=== PATIENT | female | born 1980 | race Caucasian/White ===

== ENCOUNTER 2022-08-09 22:58 | Inpatient (IN) | payer OTHER, SELFPAY ==
[2022-08-09 23:25] VITALS: BP 112/55; PULSE 54; RESP 18; TEMP 36.4; O2SAT 96
--- NOTE | 2022-08-10 02:46 | PC.ADMIT ---
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 PT WAS BROUGHT IN DUE TO INCREASED DEPRESSION AND SUICIDAL IDEATIONS. PT REPORTED A PLAN TO JUMP OFF A BRIDGE AND WORSENING PANIC ATTACKS. PT REPORTS POOR SLEEP AND APPETITE. SHE HAS HAD 3 PAST HOSPITALIZATIONS. PT HAS A HX OF SELF HARM, WITH SCARRING ON BILATERAL UPPER EXTREMITIES. PT HAS ONE PAST SUICIDE ATTEMPT. PT HAS A HISTORY OF SUBSTANCE USE DISORDER WITH ONE MONTH OF SOBRIETY FROM ALCOHOL AND OPIOIDS. PT ON SUBOXONE CURRENTLY. PTS VITAL SIGNS STABLE. COVID NEGATIVE. PT RENTS AN APARTMENT AND CAN RETURN AFTER DISCHARGE. PT NEEDS OUTPATIENT PROVIDERS. LABS UNREMARKABLE. PSYCH/DUAL GROUP. 15 MINUTE SAFETY CHECKS. ALERT AND ORIENTED X4. NO KNOWN ALLERGIES. INDEPENDENT AMBULATION. ONE PRIOR PSYCH ADMISSION OF 1 MONTH DURATION IN [place]. UTOX NEGATIVE. UNEMPLOYED. NEVER BEEN , NO CHILDREN. NO LEGAL INVOLVEMENT. PT FEELS HOPELESS. PT DENIES THOUGHTS OF HARMING OTHERS. NO AH OR VH AT THIS TIME. SAFE ON UNIT AND CAN SEEK STAFF. PT DID NOT SIGN LEGAL RELEASES AT THIS TIME. SAFETY TOOL NEEDS TO BE COMPLETED.
[2022-08-10] MEDS: Gabapentin 300 MG CAPSULE PO ×3 (09:31→19:53)
[2022-08-10] MEDS: PARoxetine HCL 30 MG TABLET 60 MG PO (09:31)
[2022-08-10] MEDS: Buprenorphine/Naloxone 8/2 mg FILM 2 FILM SUBLINGUAL (09:31)
[2022-08-10] MEDS: LORazepam 1 MG TABLET PO ×2 (10:47→18:14)
[2022-08-10 10:57] VITALS: BP 110/70; PULSE 70; RESP 16; TEMP 36.5; O2SAT 97
--- NOTE | 2022-08-10 13:29 | HO.PM.IMCN ---
History of Present Illness Data of Consult Service Date: 08/10/22 Primary Care Provider: Unknown Physician HPI Reason for consult: Routine medical H&P This is a 42 yo F who denies any chronic medical problems and is admitted to the inpatient psychiatric unit. Medical consult requested for routine medical H&P. Pt seen and examined. She reports some urinary urgency and frequency. Reports that she was treated with antibiotics for a UTI in the last 1-2 weeks. She reports recent menses. She denies abdominal pain. Denies any fevers or chills. Reports sexual activity with barrier contraception. However, concerned over STI and would like to be tested. PMH/PSH Denies Review of Systems Review of Systems: negative except HPI PMFSH Social History Household Members: Unknown / Unable to assess Housing: Apartment Do you presently have visiting nurse or other home services: No Unable to assess alcohol history related to: Unknown Patient Tobacco Use Status: Never used Tobacco Smoked in Last 30 Days: No Patient Interested in Nicotine Replacement: No Patient Given Instructions on How to Stop Smoking: No Second Hand Smoke Exposure: No Use of substances other than those prescribed or required for medical reasons: Yes Substance Use Type: Former Substance User Last Used Substance: Unknown Currently Displaying Signs/Symptoms of Drug Intoxication Withdrawal: No Any prior treatment program specific to substance use: Yes Spiritual Healthcare Practices: unknown Baptism Healthcare Practices: unknown Cultural Healthcare Practices: unknown Advance Directives: No Advance Directives Information Provided: No Do you have thoughts of harming others: None Do you have a plan to hurt others: No Plan Recently lost weight without trying: Unsure How much weight loss: Unsure Eating poorly because of decreased appetite: No Nutrition screen score: 4 Nutrition Risks: No Nutritional Risk Patient : No : No Poor oral hygiene: No Meds Allergies Allergy/AdvReac Type Severity Reaction Status Date / Time No Known Allergies Allergy Verified 08/10/22 03:42 Active Medications: Current Medications Acetaminophen (Acetaminophen 325 Mg Tablet) 650 mg PO Q6H PRN PRN Reason: Headache/Pain Mild Scale (1-3) Al Hydroxide/Mg Hydroxide (Magnesium Hydrox/Alum Hydrox 30 Ml Oral.Susp) 30 ml PO Q6H PRN PRN Reason: Heartburn/Nausea Buprenorphine/Naloxone (Buprenorphine/Naloxone 8/2 Mg Film) 1 film SUBLINGUAL 0900,1700 JOANNE Gabapentin (Gabapentin 300 Mg Capsule) 300 mg PO TID [facility] Last Admin: 08/10/22 09:31 Dose: 300 mg Hydroxyzine HCl (Hydroxyzine Hcl 25 Mg Tablet) 25 mg PO Q6H PRN PRN Reason: Anxiety Lorazepam (Lorazepam 1 Mg Tablet) 1 mg PO BID PRN PRN Reason: anxiety Last Admin: 08/10/22 10:47 Dose: 1 mg Magnesium Hydroxide (Milk Of Magnesia 30 Ml Oral.Susp) 30 ml PO DAILY PRN PRN Reason: Constipation Mirtazapine (Mirtazapine 15 Mg Tablet) 15 mg PO BEDTIME JOANNE Paroxetine HCl (Paroxetine Hcl 30 Mg Tablet) 60 mg PO DAILY JOANNE Last Admin: 08/10/22 09:31 Dose: 60 mg Trazodone HCl (Trazodone Hcl 50 Mg Tablet) 50 mg PO BEDTIME MRX1 PRN PRN Reason: Insomnia Home Medications Medication Instructions Recorded Confirmed Last Taken Type buprenorphine 8 mg-naloxone 2 mg 2 film buccal DAILY 08/10/22 08/10/22 Unknown History sublingual film (Suboxone) gabapentin 300 mg capsule 300 mg PO TID 08/10/22 08/10/22 Unknown History lorazepam 1 mg tablet 1 mg PO BID PRN anxiety 08/10/22 08/10/22 Unknown History mirtazapine 15 mg tablet 15 mg PO BEDTIME 08/10/22 08/10/22 Unknown History paroxetine HCl 30 mg tablet (Paxil) 60 mg PO DAILY 08/10/22 08/10/22 Unknown History Physical Exam Vital Signs and Narrative: Vital Signs: Last Vital Signs Temp 97.7 F 08/10/22 10:57 Pulse 70 08/10/22 10:57 Resp 16 08/10/22 10:57 BP 110/70 08/10/22 10:57 Pulse Ox 97 08/10/22 10:57 O2 Del Method Room Air 08/10/22 10:57 Const: Other: General - no acute distress, appears comfortable Cardiovascular - regular rate and rhythm, S1-S2 Lungs - normal respiratory effort, clear to auscultation bilaterally, no wheezing Abdomen - soft, nontender, no rebound or guarding Extremities - no edema bilaterally Neuro - awake and alert, no focal deficits; cn 2-12 intact bilaterally - patient defers Assessment and Plan (1) Urinary frequency: Status: Acute Plan 42 yo F admitted to . Medical consult requested for routine medical H&P. Pt denies any chornic medical issues. Endorses urinary symptoms of dysuria / urgency / frequency. Recently completed treatment for UTI. Also reports sexual activity with barrier protection, but requested STI screen. Denies symptoms of PID. Denies any rashes / ulcerations. Plan: Check UA check urine for G/C; pt deferred exam, if symptoms persist, may need further eval Will treat if any of the above positive Will sign off at this time, please reconsult PRN. Time Spent With Patient Time: Total time managing care of this patient today ____ minutes.
[2022-08-10 14:39] LABS: Appearance Urine Clear; Color Urine Yellow; Glucose Urine UA Negative (Negative); Leukocyte Esterase Urine Moderate (2+) (Negative); Nitrite Urine Negative (Negative); Specific Gravity - Urine <= 1.005 (1.005-1.025); UMIC TRIGGER UACC YES; Urine Blood Large (3+) (Negative); Urine Ketones Negative (Negative); Urine Protein Negative (Neg-Trace)
[2022-08-10 14:53] LABS: Bacteria Urine None Seen (None Seen); Hyaline Casts Urine 0-2 /LPF (0-2); Squamous Epithelial Cell Urine 0-2 /HPF (0-2); WBC Urine 0-5 /HPF (0-5)
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
[2022-08-10 17:42] LABS: CT PCR NOT DETECTED (Not Detect.); NG PCR NOT DETECTED (Not Detect.)
[2022-08-10 18:00] VITALS: BP 122/75; PULSE 68; TEMP 36.5; O2SAT 96
[2022-08-10] MEDS: Buprenorphine/Naloxone 8/2 mg FILM 1 FILM SUBLINGUAL (18:14)
[2022-08-10] MEDS: Mirtazapine 15 MG TABLET PO (19:53)
[2022-08-11] MEDS: Buprenorphine/Naloxone 8/2 mg FILM 1 FILM SUBLINGUAL (09:01)
[2022-08-11] MEDS: Gabapentin 300 MG CAPSULE PO ×3 (09:01→19:21)
[2022-08-11] MEDS: PARoxetine HCL 30 MG TABLET 60 MG PO (09:01)
[2022-08-11 09:04] VITALS: BP 120/85; PULSE 76; RESP 18; TEMP 36.3; O2SAT 96
[2022-08-11 09:36] LABS: Estimated Average Glucose 85 mg/dL; Hemoglobin A1c % 4.6 %
[2022-08-11 09:40] LABS: Cholesterol 189 mg/dL; HDL Cholesterol 57 mg/dL; LDL Cholesterol Calculated 109 mg/dl; Magnesium 2.1 mg/dL (1.6-2.6); Triglycerides 119 mg/dL
[2022-08-11 09:55] LABS: Free T4 (Free Thyroxine) 0.87 ng/dL (0.71-1.85); Thyroid Stimulating Hormone 1.62 uIU/mL (0.32-4.0)
[2022-08-11 10:08] LABS: Folate 13.6 ng/mL (> or = 4.0); Vitamin B12 657 pg/mL (200-900)
[2022-08-11] MEDS: LORazepam 1 MG TABLET PO (10:22)
[2022-08-11] MEDS: clonazePAM 1 MG TABLET PO ×2 (12:41→19:21)
--- NOTE | 2022-08-11 15:22 | HO.PSYCHPN ---
Subjective Subjective Date of Service: 08/11/22 Reason For Visit: F33.1 MDD, F10.20 AUD, F11.9 OUD Subjective Notes: Conditional Voluntary Healthcare Proxy: No Guardianship: No Medical Problems Affecting Mental Status: No Interim History: Pt reports anxiety is high. By history, Klonopin has worked more effectively than Lorazepam, will discontinue Lorazepam and change to Klonopin prn. Discussed Suboxone dosing as well. Pt prefers to decrease, using the 8 mg strip in the a.m. and decreasing the 8 mg evening stip to 4 mg which we will trial. Pt working with team on placement options. She is open to a transfer anywhere in the state and is flexible in her choices. Medication Compliance: Yes Side effects from medications: No Attending Groups: Intermittent Review of Systems Acute medical concerns: No Medical Review of Systems: unchanged Mental Status Exam Mental Status Exam Patient Appearance: Appropriate Patient Orientation: Person, Place, Time and Situation Level of Consciousness: Alert Patient Behavior: Appropriate, Talkative, Cooperative, Anxious and Good Eye Contact Mood Description: Depressed and Anxious Affect Description: Flat Patient Cognition Impaired: No Ability to Follow Directions: Good Speech Pattern: Spontaneous Speech Memory Description: Episodic Impaired Hallucinations: None Delusions: Not Present Perceptual Disturbances: Depersonalization and Derealization Thought Process: Rumination Thought Content: positive for Perseveration and positive for Suicidal Ideation Depressive Symptoms: Increased Anxiety, Diff. Making Decisions, Feelings of Worthlessness, Increased Fatigue and Thoughts of /Suicide Judgement: Fair Diagnostics Vital Signs (24Hr): Vital Signs - 24 hr 08/10/22 18:00 08/11/22 09:04 Temperature 97.7 F 97.3 F Pulse Rate 68 76 Respiratory Rate 18 Blood Pressure 122/75 120/85 Pulse Oximetry 96 96 Oxygen Delivery Method Room Air Room Air Labs Labs: Laboratory Results - last 48 hr 08/10/22 08/10/22 08/11/22 13:31 Unknown 08:51 Estimat Average Glucose 85 Hemoglobin A1c % 4.6 Magnesium Triglycerides Cholesterol LDL Cholesterol, Calc HDL Cholesterol Vitamin B12 Folate TSH Free T4 Urine Color Yellow Urine Appearance Clear Urine pH 8.0 Ur Specific [place] <= 1.005 Urine Protein Negative Urine Glucose (UA) Negative Urine Ketones Negative Urine Blood Large (3+) H Urine Nitrite Negative Ur Leukocyte Esterase Moderate (2+) H Urine RBC 3-5 H Urine WBC 0-5 Ur Squamous Epith Cells 0-2 Urine Bacteria None Seen Hyaline Casts 0-2 Chlam trachomat DNA PCR NOT DETECTED N.gonorrhoeae DNA (PCR) NOT DETECTED 08/11/22 08/11/22 08:51 08:51 Estimat Average Glucose Hemoglobin A1c % Magnesium 2.1 Triglycerides 119 Cholesterol 189 LDL Cholesterol, Calc 109 HDL Cholesterol 57 Vitamin B12 657 Folate 13.6 TSH 1.62 Free T4 0.87 Urine Color Urine Appearance Urine pH Ur Specific [place] Urine Protein Urine Glucose (UA) Urine Ketones Urine Blood Urine Nitrite Ur Leukocyte Esterase Urine RBC Urine WBC Ur Squamous Epith Cells Urine Bacteria Hyaline Casts Chlam trachomat DNA PCR N.gonorrhoeae DNA (PCR) Medications Medications Current Medications Acetaminophen (Acetaminophen 325 Mg Tablet) 650 mg PO Q6H PRN PRN Reason: Headache/Pain Mild Scale (1-3) Al Hydroxide/Mg Hydroxide (Magnesium Hydrox/Alum Hydrox 30 Ml Oral.Susp) 30 ml PO Q6H PRN PRN Reason: Heartburn/Nausea Buprenorphine/Naloxone (Buprenorphine/Naloxone 8/2 Mg Film) 1 film SUBLINGUAL 0900 [facility] Buprenorphine/Naloxone (Buprenorphine/Naloxone 4/1 Mg Film) 1 film SUBLINGUAL DAILY@1700 [facility] Clonazepam (Clonazepam 1 Mg Tablet) 1 mg PO BID PRN PRN Reason: anxiety Last Admin: 08/11/22 12:41 Dose: 1 mg Gabapentin (Gabapentin 300 Mg Capsule) 300 mg PO TID [facility] Last Admin: 08/11/22 09:01 Dose: 300 mg Hydroxyzine HCl (Hydroxyzine Hcl 25 Mg Tablet) 25 mg PO Q6H PRN PRN Reason: Anxiety Magnesium Hydroxide (Milk Of Magnesia 30 Ml Oral.Susp) 30 ml PO DAILY PRN PRN Reason: Constipation Mirtazapine (Mirtazapine 15 Mg Tablet) 15 mg PO BEDTIME [facility] Last Admin: 08/10/22 19:53 Dose: 15 mg Paroxetine HCl (Paroxetine Hcl 30 Mg Tablet) 60 mg PO DAILY [facility] Last Admin: 08/11/22 09:01 Dose: 60 mg Trazodone HCl (Trazodone Hcl 50 Mg Tablet) 50 mg PO BEDTIME MRX1 PRN PRN Reason: Insomnia Allergies Allergies Allergy/AdvReac Type Severity Reaction Status Date / Time No Known Allergies Allergy Verified 08/10/22 03:42 Assessment & Plan Assessment & Plan (1) PTSD (post-traumatic stress disorder): Status: Acute Code(s): F43.10 - Post-traumatic stress disorder, unspecified (2) Recurrent major depression: Status: Acute Code(s): F33.9 - Major depressive disorder, recurrent, unspecified (3) Opioid use disorder: Status: Acute Code(s): F11.90 - Opioid use, unspecified, uncomplicated Plan 42 yo female, history of PTSD, Recurrent Major Depression, Opiate Use Disorder, Alcohol Use Disorder with SI and plan to jump from a bridge (reports she did attempt this last week). Pt sent in transfer from [facility]. New med regime she is working with and finding tolerable-she would like to continue, and hoping to find longer term treatment to re-enforce sobriety. Plan: Collateral contact Continue OP med regime at this time with adjustments as needed. Addiction consult for recovery coaching and support Team will begin to apply for TSS programs with pt. Collateral contact Medical assessment 08/11/22: Discontinue Lorazepam Klonopin 1 mg bid prn Decrease Suboxone to 8 mg a.m. 4 mg 1700. UA and UA for G/C negative with sx of frequency. No STI Patient educated on: medication risk/benefits and therapeutic strategies Informed Consent: understands Reason for continued inpatient stay Substantial Risk for: harm to self and rapid decompensation Time Spent With Patient Time: Total time managing care of this patient today ____ minutes.
[2022-08-11 16:25] VITALS: BP 108/70; PULSE 74; TEMP 35.7
[2022-08-11] MEDS: Buprenorphine/Naloxone 4/1 mg FILM 1 FILM SUBLINGUAL (16:36)
[2022-08-11] MEDS: Mirtazapine 15 MG TABLET PO (19:21)
--- NOTE | 2022-08-11 21:25 | MHC.RECOVSUP ---
? Reason for consult:OPI o? Current location:[facility]? o? Identified substance use concern:? -? Support ? Intervention: o? Community resources provided ? Plan: o? Follow up tomorrow? ? Additional information:RC met with this pt and discussed different treatment facilities, and RC services. Pt stated she'd like to move on to further treatment and then work with a RC. RC will follow up with this pt tomorrow.
[2022-08-12 08:00] VITALS: BP 108/69; PULSE 61; RESP 18; TEMP 35.3; O2SAT 98
[2022-08-12] MEDS: Gabapentin 300 MG CAPSULE PO (08:05)
[2022-08-12] MEDS: PARoxetine HCL 30 MG TABLET 60 MG PO (08:05)
[2022-08-12] MEDS: clonazePAM 1 MG TABLET PO ×2 (08:05→16:15)
[2022-08-12] MEDS: Buprenorphine/Naloxone 8/2 mg FILM 1 FILM SUBLINGUAL (08:11)
--- NOTE | 2022-08-12 13:33 | P.PNPSI_ITS ---
Subjective Subjective Date of Service: 08/12/22 Reason For Visit: F33.1 MDD, F10.20 AUD, F11.9 OUD Subjective Notes: Conditional Voluntary Healthcare Proxy: No Guardianship: No Medical Problems Affecting Mental Status: No Interim History: Reports anxiety. Full med review. Team continues to work with pt on placement Medication Compliance: Yes Side effects from medications: No Attending Groups: Intermittent Review of Systems Acute medical concerns: No Medical Review of Systems: unchanged Mental Status Exam Mental Status Exam Patient Appearance: Appropriate Patient Orientation: Person, Place, Time and Situation Level of Consciousness: Alert Patient Behavior: Appropriate, Talkative, Cooperative, Anxious and Good Eye Contact Mood Description: Depressed and Anxious Affect Description: Flat Patient Cognition Impaired: No Ability to Follow Directions: Good Speech Pattern: Spontaneous Speech Memory Description: Episodic Impaired Hallucinations: None Delusions: Not Present Perceptual Disturbances: Depersonalization and Derealization Thought Process: Rumination Thought Content: positive for Perseveration and positive for Suicidal Ideation Depressive Symptoms: Increased Anxiety, Diff. Making Decisions, Feelings of Worthlessness, Increased Fatigue and Thoughts of /Suicide Judgement: Fair Diagnostics Vital Signs (24Hr): Vital Signs - 24 hr 08/11/22 16:25 08/12/22 08:00 Temperature 96.3 F L 95.5 F L Pulse Rate 74 61 Respiratory Rate 18 Blood Pressure 108/70 108/69 Pulse Oximetry 98 Oxygen Delivery Method Room Air Labs Labs: Laboratory Results - last 48 hr 08/10/22 08/10/22 08/11/22 13:31 Unknown 08:51 Estimat Average Glucose 85 Hemoglobin A1c % 4.6 Magnesium Triglycerides Cholesterol LDL Cholesterol, Calc HDL Cholesterol Vitamin B12 Folate TSH Free T4 Urine Color Yellow Urine Appearance Clear Urine pH 8.0 Ur Specific [place] <= 1.005 Urine Protein Negative Urine Glucose (UA) Negative Urine Ketones Negative Urine Blood Large (3+) H Urine Nitrite Negative Ur Leukocyte Esterase Moderate (2+) H Urine RBC 3-5 H Urine WBC 0-5 Ur Squamous Epith Cells 0-2 Urine Bacteria None Seen Hyaline Casts 0-2 Chlam trachomat DNA PCR NOT DETECTED N.gonorrhoeae DNA (PCR) NOT DETECTED 08/11/22 08/11/22 08:51 08:51 Estimat Average Glucose Hemoglobin A1c % Magnesium 2.1 Triglycerides 119 Cholesterol 189 LDL Cholesterol, Calc 109 HDL Cholesterol 57 Vitamin B12 657 Folate 13.6 TSH 1.62 Free T4 0.87 Urine Color Urine Appearance Urine pH Ur Specific [place] Urine Protein Urine Glucose (UA) Urine Ketones Urine Blood Urine Nitrite Ur Leukocyte Esterase Urine RBC Urine WBC Ur Squamous Epith Cells Urine Bacteria Hyaline Casts Chlam trachomat DNA PCR N.gonorrhoeae DNA (PCR) Medications Medications Current Medications Acetaminophen (Acetaminophen 325 Mg Tablet) 650 mg PO Q6H PRN PRN Reason: Headache/Pain Mild Scale (1-3) Al Hydroxide/Mg Hydroxide (Magnesium Hydrox/Alum Hydrox 30 Ml Oral.Susp) 30 ml PO Q6H PRN PRN Reason: Heartburn/Nausea Buprenorphine/Naloxone (Buprenorphine/Naloxone 8/2 Mg Film) 1 film SUBLINGUAL 0900 [facility] Last Admin: 08/12/22 08:11 Dose: 1 film Buprenorphine/Naloxone (Buprenorphine/Naloxone 4/1 Mg Film) 1 film SUBLINGUAL DAILY@1700 [facility] Last Admin: 08/11/22 16:36 Dose: 1 film Clonazepam (Clonazepam 1 Mg Tablet) 1 mg PO BID PRN PRN Reason: anxiety Last Admin: 08/12/22 08:05 Dose: 1 mg Gabapentin (Gabapentin 300 Mg Capsule) 300 mg PO TID [facility] Last Admin: 08/12/22 08:05 Dose: 300 mg Hydroxyzine HCl (Hydroxyzine Hcl 25 Mg Tablet) 25 mg PO Q6H PRN PRN Reason: Anxiety Magnesium Hydroxide (Milk Of Magnesia 30 Ml Oral.Susp) 30 ml PO DAILY PRN PRN Reason: Constipation Mirtazapine (Mirtazapine 15 Mg Tablet) 15 mg PO BEDTIME [facility] Last Admin: 08/11/22 19:21 Dose: 15 mg Paroxetine HCl (Paroxetine Hcl 30 Mg Tablet) 60 mg PO DAILY [facility] Last Admin: 08/12/22 08:05 Dose: 60 mg Trazodone HCl (Trazodone Hcl 50 Mg Tablet) 50 mg PO BEDTIME MRX1 PRN PRN Reason: Insomnia Allergies Allergies Allergy/AdvReac Type Severity Reaction Status Date / Time No Known Allergies Allergy Verified 08/10/22 03:42 Assessment & Plan Assessment & Plan (1) PTSD (post-traumatic stress disorder): Status: Acute Code(s): F43.10 - Post-traumatic stress disorder, unspecified (2) Recurrent major depression: Status: Acute Code(s): F33.9 - Major depressive disorder, recurrent, unspecified (3) Opioid use disorder: Status: Acute Code(s): F11.90 - Opioid use, unspecified, uncomplicated Plan 42 yo female, history of PTSD, Recurrent Major Depression, Opiate Use Disorder, Alcohol Use Disorder with SI and plan to jump from a bridge (reports she did attempt this last week). Pt sent in transfer from [facility]. New med regime she is working with and finding tolerable-she would like to continue, and hoping to find longer term treatment to re-enforce sobriety. Plan: Collateral contact Continue OP med regime at this time with adjustments as needed. Addiction consult for recovery coaching and support Team will begin to apply for TSS programs with pt. Collateral contact Medical assessment 08/11/22: Discontinue Lorazepam Klonopin 1 mg bid prn Decrease Suboxone to 8 mg a.m. 4 mg 1700. UA and UA for G/C negative with sx of frequency. No STI 08/12/22: Increase Gabapentin to 600 mg tid (baseline dose by history). Patient educated on: medication risk/benefits and therapeutic strategies Informed Consent: understands Reason for continued inpatient stay Substantial Risk for: harm to self and rapid decompensation Time Spent With Patient Time: Total time managing care of this patient today ____ minutes.
[2022-08-12] MEDS: Gabapentin 300 MG CAPSULE 600 MG PO ×2 (14:49→19:43)
[2022-08-12] MEDS: Buprenorphine/Naloxone 4/1 mg FILM 1 FILM SUBLINGUAL (16:15)
[2022-08-12 18:26] VITALS: BP 121/80; PULSE 84; TEMP 36.5; O2SAT 96
[2022-08-12] MEDS: Mirtazapine 15 MG TABLET PO (19:43)
[2022-08-12] MEDS: hydrOXYzine HCL 25 MG TABLET PO (19:43)
[2022-08-12] MEDS: QUEtiapine Fumarate 50 MG TABLET PO (20:52)
[2022-08-13] MEDS: Gabapentin 300 MG CAPSULE 600 MG PO ×3 (08:16→19:55)
[2022-08-13] MEDS: PARoxetine HCL 30 MG TABLET 60 MG PO (08:16)
[2022-08-13] MEDS: Buprenorphine/Naloxone 8/2 mg FILM 1 FILM SUBLINGUAL (08:18)
[2022-08-13] MEDS: clonazePAM 1 MG TABLET PO (08:18)
[2022-08-13 08:21] VITALS: BP 110/72; PULSE 81; RESP 16; TEMP 36.6; O2SAT 95
[2022-08-13 18:00] VITALS: BP 108/63; PULSE 81; TEMP 36.8; O2SAT 96
--- NOTE | 2022-08-13 18:23 | HO.PSYCHPN ---
Subjective Subjective Date of Service: 08/13/22 Reason For Visit: F33.1 MDD, F10.20 AUD, F11.9 OUD Interim History: Pt seen, reviewed with the team. Med compliant, eating, sleeping adequately, no dangerous behavioral sx. Last evening, pt with a few angry outbursts-states she was triggered, but not sure by what. Discussed recent med changes and where to make further changes. Used Olanzapine, Lorazepam, Seroquel prn offered last evening. Feeling improved today Medication Compliance: Yes Side effects from medications: No Attending Groups: Intermittent Review of Systems Acute medical concerns: No Medical Review of Systems: unchanged Mental Status Exam Mental Status Exam Patient Appearance: Appropriate Patient Orientation: Person, Place, Time and Situation Level of Consciousness: Alert Patient Behavior: Appropriate, Talkative, Cooperative, Anxious and Good Eye Contact Mood Description: Depressed and Anxious Affect Description: Flat Patient Cognition Impaired: No Ability to Follow Directions: Good Speech Pattern: Spontaneous Speech Memory Description: Episodic Impaired Hallucinations: None Delusions: Not Present Perceptual Disturbances: Depersonalization and Derealization Thought Process: Rumination Thought Content: positive for Perseveration and positive for Suicidal Ideation Depressive Symptoms: Increased Anxiety, Diff. Making Decisions, Feelings of Worthlessness, Increased Fatigue and Thoughts of /Suicide Judgement: Fair Diagnostics Vital Signs (24Hr): Vital Signs - 24 hr 08/12/22 18:26 08/13/22 08:21 08/13/22 18:00 Temperature 97.7 F 97.8 F 98.3 F Pulse Rate 84 81 81 Respiratory Rate 16 Blood Pressure 121/80 110/72 108/63 Pulse Oximetry 96 95 96 Oxygen Delivery Method Room Air Room Air Room Air Medications Medications Current Medications Acetaminophen (Acetaminophen 325 Mg Tablet) 650 mg PO Q6H PRN PRN Reason: Headache/Pain Mild Scale (1-3) Al Hydroxide/Mg Hydroxide (Magnesium Hydrox/Alum Hydrox 30 Ml Oral.Susp) 30 ml PO Q6H PRN PRN Reason: Heartburn/Nausea Buprenorphine/Naloxone (Buprenorphine/Naloxone 8/2 Mg Film) 1 film SUBLINGUAL DAILY@0900 [facility] Buprenorphine/Naloxone (Buprenorphine/Naloxone 2/0.5mg Film) 1 film SUBLINGUAL DAILY@1700 [facility] Clonazepam (Clonazepam 1 Mg Tablet) 1 mg PO TID PRN PRN Reason: anxiety Last Admin: 08/13/22 12:44 Dose: 1 mg Gabapentin (Gabapentin 300 Mg Capsule) 600 mg PO TID [facility] Last Admin: 08/13/22 14:29 Dose: 600 mg Magnesium Hydroxide (Milk Of Magnesia 30 Ml Oral.Susp) 30 ml PO DAILY PRN PRN Reason: Constipation Mirtazapine (Mirtazapine 7.5 Mg Tablet) 22.5 mg PO BEDTIME [facility] Nicotine (Nicotine 21 Mg Patch.Td24) 21 mg TRANSDERMA DAILY [facility] Last Admin: 08/13/22 12:19 Dose: 21 mg Paroxetine HCl (Paroxetine Hcl 30 Mg Tablet) 60 mg PO DAILY [facility] Last Admin: 08/13/22 08:16 Dose: 60 mg Trazodone HCl (Trazodone Hcl 50 Mg Tablet) 50 mg PO BEDTIME MRX1 PRN PRN Reason: Insomnia Allergies Allergies Allergy/AdvReac Type Severity Reaction Status Date / Time No Known Allergies Allergy Verified 08/10/22 03:42 Assessment & Plan Assessment & Plan (1) PTSD (post-traumatic stress disorder): Status: Acute Code(s): F43.10 - Post-traumatic stress disorder, unspecified (2) Recurrent major depression: Status: Acute Code(s): F33.9 - Major depressive disorder, recurrent, unspecified (3) Opioid use disorder: Status: Acute Code(s): F11.90 - Opioid use, unspecified, uncomplicated Plan 42 yo female, history of PTSD, Recurrent Major Depression, Opiate Use Disorder, Alcohol Use Disorder with SI and plan to jump from a bridge (reports she did attempt this last week). Pt sent in transfer from [facility]. New med regime she is working with and finding tolerable-she would like to continue, and hoping to find longer term treatment to re-enforce sobriety. Plan: Collateral contact Continue OP med regime at this time with adjustments as needed. Addiction consult for recovery coaching and support Team will begin to apply for TSS programs with pt. Collateral contact Medical assessment 08/11/22: Discontinue Lorazepam Klonopin 1 mg bid prn Decrease Suboxone to 8 mg a.m. 4 mg 1700. UA and UA for G/C negative with sx of frequency. No STI 08/12/22: Increase Gabapentin to 600 mg tid (baseline dose by history). 08/13/22: Decrease evening dose of Suboxone to 2/0.5 per pt request Increase Klonopin to 1 mg tid prn Increase Mirtazapine to 22.5 mg HS Pt asks about ADHD med. Discussed Vyvanse trial on discharge and she is interested. Will continue to review. Patient educated on: medication risk/benefits Informed Consent: understands Reason for continued inpatient stay Substantial Risk for: harm to self and rapid decompensation Time Spent With Patient Time: Total time managing care of this patient today ____ minutes.
[2022-08-14 06:00] VITALS: BP 132/76; PULSE 72; RESP 16; TEMP 36.3; O2SAT 96
[2022-08-14] MEDS: PARoxetine HCL 30 MG TABLET 60 MG PO (08:32)
[2022-08-14] MEDS: Gabapentin 300 MG CAPSULE 600 MG PO ×3 (08:32→21:17)
--- NOTE | 2022-08-14 08:56 | HO.PSYCHPN ---
Subjective Subjective Date of Service: 08/14/22 Reason For Visit: F33.1 MDD, F10.20 AUD, F11.9 OUD Interim History: Pt was seen and reviewed with team. No episodes of behavioral dyscontrol. Pt reports doing well, medicine compliant, eating and sleeping adequately. No changes made today. Medication Compliance: Yes Side effects from medications: No Attending Groups: Intermittent Review of Systems Acute medical concerns: No Medical Review of Systems: unchanged Mental Status Exam Mental Status Exam Patient Appearance: Appropriate Patient Orientation: Person, Place, Time and Situation Level of Consciousness: Alert Patient Behavior: Appropriate, Talkative, Cooperative, Anxious and Good Eye Contact Mood Description: Depressed and Anxious Affect Description: Flat Patient Cognition Impaired: No Ability to Follow Directions: Good Speech Pattern: Spontaneous Speech Memory Description: Episodic Impaired Hallucinations: None Delusions: Not Present Perceptual Disturbances: Depersonalization and Derealization Thought Process: Rumination Thought Content: positive for Perseveration and positive for Suicidal Ideation Depressive Symptoms: Increased Anxiety, Diff. Making Decisions, Feelings of Worthlessness, Increased Fatigue and Thoughts of /Suicide Judgement: Fair Diagnostics Vital Signs (24Hr): Vital Signs - 24 hr 08/13/22 18:00 Temperature 98.3 F Pulse Rate 81 Blood Pressure 108/63 Pulse Oximetry 96 Oxygen Delivery Method Room Air Medications Medications Current Medications Acetaminophen (Acetaminophen 325 Mg Tablet) 650 mg PO Q6H PRN PRN Reason: Headache/Pain Mild Scale (1-3) Al Hydroxide/Mg Hydroxide (Magnesium Hydrox/Alum Hydrox 30 Ml Oral.Susp) 30 ml PO Q6H PRN PRN Reason: Heartburn/Nausea Buprenorphine/Naloxone (Buprenorphine/Naloxone 8/2 Mg Film) 1 film SUBLINGUAL DAILY@0900 [facility] Last Admin: 08/14/22 08:32 Dose: 1 film Buprenorphine/Naloxone (Buprenorphine/Naloxone 2/0.5mg Film) 1 film SUBLINGUAL DAILY@1700 [facility] Clonazepam (Clonazepam 1 Mg Tablet) 1 mg PO TID PRN PRN Reason: anxiety Last Admin: 08/14/22 08:41 Dose: 1 mg Gabapentin (Gabapentin 300 Mg Capsule) 600 mg PO TID [facility] Last Admin: 08/14/22 08:32 Dose: 600 mg Magnesium Hydroxide (Milk Of Magnesia 30 Ml Oral.Susp) 30 ml PO DAILY PRN PRN Reason: Constipation Mirtazapine (Mirtazapine 7.5 Mg Tablet) 22.5 mg PO BEDTIME [facility] Last Admin: 08/13/22 19:55 Dose: 22.5 mg Nicotine (Nicotine 21 Mg Patch.Td24) 21 mg TRANSDERMA DAILY [facility] Last Admin: 08/14/22 08:32 Dose: 21 mg Paroxetine HCl (Paroxetine Hcl 30 Mg Tablet) 60 mg PO DAILY [facility] Last Admin: 08/14/22 08:32 Dose: 60 mg Trazodone HCl (Trazodone Hcl 50 Mg Tablet) 50 mg PO BEDTIME MRX1 PRN PRN Reason: Insomnia Allergies Allergies Allergy/AdvReac Type Severity Reaction Status Date / Time No Known Allergies Allergy Verified 08/10/22 03:42 Assessment & Plan Assessment & Plan (1) PTSD (post-traumatic stress disorder): Status: Acute Code(s): F43.10 - Post-traumatic stress disorder, unspecified (2) Recurrent major depression: Status: Acute Code(s): F33.9 - Major depressive disorder, recurrent, unspecified (3) Opioid use disorder: Status: Acute Code(s): F11.90 - Opioid use, unspecified, uncomplicated Plan 42 yo female, history of PTSD, Recurrent Major Depression, Opiate Use Disorder, Alcohol Use Disorder with SI and plan to jump from a bridge (reports she did attempt this last week). Pt sent in transfer from [facility]. New med regime she is working with and finding tolerable-she would like to continue, and hoping to find longer term treatment to re-enforce sobriety. Plan: Collateral contact Continue OP med regime at this time with adjustments as needed. Addiction consult for recovery coaching and support Team will begin to apply for TSS programs with pt. Collateral contact Medical assessment 08/11/22: Discontinue Lorazepam Klonopin 1 mg bid prn Decrease Suboxone to 8 mg a.m. 4 mg 1700. UA and UA for G/C negative with sx of frequency. No STI 08/12/22: Increase Gabapentin to 600 mg tid (baseline dose by history). 08/14/22: Continue current regime and plan of care. Informed Consent: understands Reason for continued inpatient stay Substantial Risk for: harm to self and rapid decompensation Time Spent With Patient Time: Total time managing care of this patient today ____ minutes.
[2022-08-14 17:37] VITALS: BP 121/75; PULSE 82; TEMP 36.3; O2SAT 99
--- NOTE | 2022-08-14 22:12 | PC.NURSE ---
pt began yelling and screaming and talking to floor and matos. pt was scratching her face and arms. pt reported that she has a visitor downstairs to visit there. staff checked and there was no one there to visit her. pt was screaming up and down the hallways. pt was offered her PRN meds and Haldol 10mg. pt was offered ativan 1mg IM and agreed to take it. pt continue to scream up and down mai until she was agreed to take his night meds. pt went to sleep.
[2022-08-15 08:30] VITALS: BP 118/72; PULSE 71; RESP 18; TEMP 36.2; O2SAT 98
[2022-08-15] MEDS: PARoxetine HCL 30 MG TABLET 60 MG PO (08:46)
[2022-08-15] MEDS: Gabapentin 300 MG CAPSULE 600 MG PO ×3 (08:47→18:53)
--- NOTE | 2022-08-15 11:51 | HO.PSYCHPN ---
Subjective Subjective Date of Service: 08/15/22 Reason For Visit: F33.1 MDD, F10.20 AUD, F11.9 OUD Subjective Notes: Conditional Voluntary Healthcare Proxy: No Guardianship: No Medical Problems Affecting Mental Status: No Interim History: Team reports episode of agitation, psychosis last evening. Haldol with good effect. Full med review with pt this evening-changes initiated. Discussed feeling triggered. Team reports pt was to go to [facility] 08/09 for admission-they report she has not been truthful in her interviews and they question where she really is in her process of recovery. Medication Compliance: Yes Side effects from medications: No Attending Groups: No Review of Systems Acute medical concerns: No Medical Review of Systems: unchanged Mental Status Exam Mental Status Exam Patient Appearance: Appropriate Patient Orientation: Person, Place, Time and Situation Level of Consciousness: Alert Patient Behavior: Appropriate, Talkative, Cooperative, Anxious and Good Eye Contact Mood Description: Depressed and Anxious Affect Description: Flat Patient Cognition Impaired: No Ability to Follow Directions: Good Speech Pattern: Spontaneous Speech Memory Description: Episodic Impaired Hallucinations: None Delusions: Not Present Perceptual Disturbances: Depersonalization and Derealization Thought Process: Rumination Thought Content: positive for Perseveration and positive for Suicidal Ideation Depressive Symptoms: Increased Anxiety, Diff. Making Decisions, Feelings of Worthlessness, Increased Fatigue and Thoughts of /Suicide Judgement: Fair Diagnostics Vital Signs (24Hr): Vital Signs - 24 hr 08/14/22 17:37 08/15/22 08:30 Temperature 97.3 F 97.2 F Pulse Rate 82 71 Respiratory Rate 18 Blood Pressure 121/75 118/72 Pulse Oximetry 99 98 Oxygen Delivery Method Room Air Room Air Medications Medications Current Medications Acetaminophen (Acetaminophen 325 Mg Tablet) 650 mg PO Q6H PRN PRN Reason: Headache/Pain Mild Scale (1-3) Al Hydroxide/Mg Hydroxide (Magnesium Hydrox/Alum Hydrox 30 Ml Oral.Susp) 30 ml PO Q6H PRN PRN Reason: Heartburn/Nausea Buprenorphine/Naloxone (Buprenorphine/Naloxone 8/2 Mg Film) 1 film SUBLINGUAL DAILY@0900 [facility] Last Admin: 08/15/22 08:46 Dose: 1 film Buprenorphine/Naloxone (Buprenorphine/Naloxone 2/0.5mg Film) 1 film SUBLINGUAL DAILY@1700 [facility] Last Admin: 08/14/22 17:33 Dose: Not Given Clonazepam (Clonazepam 1 Mg Tablet) 1 mg PO TID PRN PRN Reason: anxiety Last Admin: 08/15/22 11:50 Dose: 1 mg Gabapentin (Gabapentin 300 Mg Capsule) 600 mg PO TID [facility] Last Admin: 08/15/22 08:47 Dose: 600 mg Magnesium Hydroxide (Milk Of Magnesia 30 Ml Oral.Susp) 30 ml PO DAILY PRN PRN Reason: Constipation Mirtazapine (Mirtazapine 7.5 Mg Tablet) 22.5 mg PO BEDTIME [facility] Last Admin: 08/14/22 21:17 Dose: 22.5 mg Nicotine (Nicotine 21 Mg Patch.Td24) 21 mg TRANSDERMA DAILY [facility] Last Admin: 08/15/22 08:46 Dose: 21 mg Paroxetine HCl (Paroxetine Hcl 30 Mg Tablet) 60 mg PO DAILY [facility] Last Admin: 08/15/22 08:46 Dose: 60 mg Trazodone HCl (Trazodone Hcl 50 Mg Tablet) 50 mg PO BEDTIME MRX1 PRN PRN Reason: Insomnia Allergies Allergies Allergy/AdvReac Type Severity Reaction Status Date / Time No Known Allergies Allergy Verified 08/10/22 03:42 Assessment & Plan Assessment & Plan (1) PTSD (post-traumatic stress disorder): Status: Acute Code(s): F43.10 - Post-traumatic stress disorder, unspecified (2) Recurrent major depression: Status: Acute Code(s): F33.9 - Major depressive disorder, recurrent, unspecified (3) Opioid use disorder: Status: Acute Code(s): F11.90 - Opioid use, unspecified, uncomplicated Plan 42 yo female, history of PTSD, Recurrent Major Depression, Opiate Use Disorder, Alcohol Use Disorder with SI and plan to jump from a bridge (reports she did attempt this last week). Pt sent in transfer from [facility]. New med regime she is working with and finding tolerable-she would like to continue, and hoping to find longer term treatment to re-enforce sobriety. Plan: Collateral contact Continue OP med regime at this time with adjustments as needed. Addiction consult for recovery coaching and support Team will begin to apply for TSS programs with pt. Collateral contact Medical assessment 08/11/22: Discontinue Lorazepam Klonopin 1 mg bid prn Decrease Suboxone to 8 mg a.m. 4 mg 1700. UA and UA for G/C negative with sx of frequency. No STI 08/12/22: Increase Gabapentin to 600 mg tid (baseline dose by history). 08/14/22: Continue current regime and plan of care. 08/15/22: Topamax 25 mg bid Decrease Mirtazapine to 7.5 mg hs Discontinue evening Suboxone Haldol 5 mg bid prn Patient educated on: medication risk/benefits Informed Consent: understands and further education needed Reason for continued inpatient stay Substantial Risk for: harm to self and rapid decompensation Time Spent With Patient Time: Total time managing care of this patient today ____ minutes.
[2022-08-15] MEDS: Magnesium Hydrox/Alum Hydrox 30 ML ORAL.SUSP PO (13:02)
[2022-08-15 18:00] VITALS: BP 120/85; PULSE 76; TEMP 36.2
[2022-08-16] MEDS: PARoxetine HCL 30 MG TABLET 60 MG PO (08:26)
[2022-08-16] MEDS: Gabapentin 300 MG CAPSULE 600 MG PO (08:26)
[2022-08-16] MEDS: Acetaminophen 325 MG TABLET 650 MG PO (08:26)
[2022-08-16 08:39] VITALS: BP 118/69; PULSE 72; RESP 16; TEMP 36.5; O2SAT 95
--- NOTE | 2022-08-16 11:47 | HO.PSYCHPN ---
Subjective Subjective Date of Service: 08/16/22 Reason For Visit: F33.1 MDD, F10.20 AUD, F11.9 OUD Interim History: Patient seen and discussed. Reports she was on a higher dose of GBP which was more helpful for her anxiety. She tolerated that without side effects. She has improved compared to admission. Nursing note occasional times of self dialogue. Denies SI. Review of Systems Review of Systems negative except HPI Yes all other systems are reviewed and are negative (denies current medical issues) Constitutional: Reports difficulty sleeping, Reports lethargy and Reports poor appetite Eyes: Reports no additional eye complaints Reports system reviewed and no additional complaints, except as documented Cardiovascular: Reports no additional cardiovascular complaints Respiratory: Reports no additional respiratory complaints Gastrointestinal: Reports no additional gastrointestinal complaints Musculoskeletal: Reports no additional musculoskeletal complaints Skin/Breast: Reports system reviewed and no additional complaints, except as docu Reports system reviewed and no additional complaints, except as documented and Reports behavioral changes Psychiatric: Reports abnormal sleep pattern, Reports anxiety, Reports behavioral changes, Reports depression, Reports difficulty concentrating, Reports hopelessness, Reports anhedonia, Reports panic attacks and Reports suicidal ideation Endocrine: Reports no additional endocrine complaints Hematologic/Lymphatic: Reports no additional hematologic/lymphatic complaints Allergic/Immunologic: Reports no additional allergic/immunologic complaints Mental Status Exam Mental Status Exam Patient Appearance: Appropriate Patient Orientation: Person, Place, Time and Situation Level of Consciousness: Alert Patient Behavior: Appropriate, Talkative, Cooperative, Anxious and Good Eye Contact Mood Description: Depressed and Anxious Affect Description: Flat Patient Cognition Impaired: No Ability to Follow Directions: Good Speech Pattern: Spontaneous Speech Memory Description: Episodic Impaired Diagnostics Vital Signs (24Hr): Vital Signs - 24 hr 08/15/22 18:00 08/16/22 08:39 Temperature 97.2 F 97.7 F Pulse Rate 76 72 Respiratory Rate 16 Blood Pressure 120/85 118/69 Pulse Oximetry 95 Oxygen Delivery Method Room Air Medications Medications Current Medications Acetaminophen (Acetaminophen 325 Mg Tablet) 650 mg PO Q6H PRN PRN Reason: Headache/Pain Mild Scale (1-3) Last Admin: 08/16/22 08:26 Dose: 650 mg Al Hydroxide/Mg Hydroxide (Magnesium Hydrox/Alum Hydrox 30 Ml Oral.Susp) 30 ml PO Q6H PRN PRN Reason: Heartburn/Nausea Last Admin: 08/15/22 13:02 Dose: 30 ml Buprenorphine/Naloxone (Buprenorphine/Naloxone 8/2 Mg Film) 1 film SUBLINGUAL DAILY@0900 [facility] Last Admin: 08/16/22 08:30 Dose: 1 film Clonazepam (Clonazepam 1 Mg Tablet) 1 mg PO TID PRN PRN Reason: anxiety Last Admin: 08/16/22 08:26 Dose: 1 mg Gabapentin (Gabapentin 300 Mg Capsule) 600 mg PO TID [facility] Last Admin: 08/16/22 08:26 Dose: 600 mg Haloperidol (Haloperidol 5 Mg Tablet) 5 mg PO BID PRN PRN Reason: dissociation, flashbacks, agitation Last Admin: 08/15/22 17:55 Dose: 5 mg Magnesium Hydroxide (Milk Of Magnesia 30 Ml Oral.Susp) 30 ml PO DAILY PRN PRN Reason: Constipation Mirtazapine (Mirtazapine 7.5 Mg Tablet) 7.5 mg PO BEDTIME [facility] Last Admin: 08/15/22 18:53 Dose: 7.5 mg Nicotine (Nicotine 21 Mg Patch.Td24) 21 mg TRANSDERMA DAILY [facility] Last Admin: 08/16/22 08:26 Dose: 21 mg Paroxetine HCl (Paroxetine Hcl 30 Mg Tablet) 60 mg PO DAILY [facility] Last Admin: 08/16/22 08:26 Dose: 60 mg Topiramate (Topiramate 25 Mg Tablet) 25 mg PO BID [facility] Last Admin: 08/16/22 08:26 Dose: 25 mg Trazodone HCl (Trazodone Hcl 50 Mg Tablet) 50 mg PO BEDTIME MRX1 PRN PRN Reason: Insomnia Allergies Allergies Allergy/AdvReac Type Severity Reaction Status Date / Time No Known Allergies Allergy Verified 08/10/22 03:42 Assessment & Plan Assessment & Plan (1) PTSD (post-traumatic stress disorder): Status: Acute Code(s): F43.10 - Post-traumatic stress disorder, unspecified (2) Recurrent major depression: Status: Acute Code(s): F33.9 - Major depressive disorder, recurrent, unspecified (3) Opioid use disorder: Status: Acute Code(s): F11.90 - Opioid use, unspecified, uncomplicated Plan 42 yo female, history of PTSD, Recurrent Major Depression, Opiate Use Disorder, Alcohol Use Disorder with SI and plan to jump from a bridge (reports she did attempt this last week). Pt sent in transfer from [facility]. New med regime she is working with and finding tolerable-she would like to continue, and hoping to find longer term treatment to re-enforce sobriety. Plan: Collateral contact Continue OP med regime at this time with adjustments as needed. Addiction consult for recovery coaching and support Team will begin to apply for TSS programs with pt. Collateral contact Medical assessment 08/11/22: Discontinue Lorazepam Klonopin 1 mg bid prn Decrease Suboxone to 8 mg a.m. 4 mg 1700. UA and UA for G/C negative with sx of frequency. No STI 08/12/22: Increase Gabapentin to 600 mg tid (baseline dose by history). 08/14/22: Continue current regime and plan of care. 08/15/22: Topamax 25 mg bid Decrease Mirtazapine to 7.5 mg hs Discontinue evening Suboxone Haldol 5 mg bid prn 08/16: Increase GBP to 800 mg TID. Reason for continued inpatient stay Substantial Risk for: harm to self, inability to function and rapid decompensation Time Spent With Patient Time: Total time managing care of this patient today ____ minutes.
[2022-08-16] MEDS: Milk of Magnesia 30 ML ORAL.SUSP PO (13:55)
[2022-08-16 19:33] VITALS: BP 110/72; PULSE 73; RESP 16; TEMP 36.1; O2SAT 99
[2022-08-17 07:56] VITALS: BP 112/76; PULSE 66; RESP 16; TEMP 36.4
[2022-08-17] MEDS: PARoxetine HCL 30 MG TABLET 60 MG PO (07:58)
--- NOTE | 2022-08-17 16:49 | HO.PSYCHPN ---
Subjective Subjective Date of Service: 08/17/22 Reason For Visit: F33.1 MDD, F10.20 AUD, F11.9 OUD Subjective Notes: Conditional Voluntary Healthcare Proxy: No Guardianship: No Medical Problems Affecting Mental Status: No Interim History: Reviewed with team. Improving, however with intermittent anxiety, agitation, ?PTSD sx. Several applications have been sent to programs by team. Pt has refused some due to medicine restrictions. Application faxed to [employer] Med review completed. Geodon 40 mg to begin. Haldol to discontinue. Medication Compliance: Yes Side effects from medications: No Attending Groups: Intermittent Review of Systems Acute medical concerns: No Medical Review of Systems: unchanged Mental Status Exam Mental Status Exam Patient Appearance: Appropriate Patient Orientation: Person, Place, Time and Situation Level of Consciousness: Alert Patient Behavior: Appropriate, Talkative, Cooperative, Anxious and Good Eye Contact Mood Description: Depressed and Anxious Affect Description: Flat Patient Cognition Impaired: No Ability to Follow Directions: Good Speech Pattern: Spontaneous Speech Memory Description: Episodic Impaired Diagnostics Vital Signs (24Hr): Vital Signs - 24 hr 08/16/22 19:33 08/17/22 07:56 Temperature 97 F 97.5 F Pulse Rate 73 66 Respiratory Rate 16 16 Blood Pressure 110/72 112/76 Pulse Oximetry 99 Medications Medications Current Medications Acetaminophen (Acetaminophen 325 Mg Tablet) 650 mg PO Q6H PRN PRN Reason: Headache/Pain Mild Scale (1-3) Last Admin: 08/16/22 08:26 Dose: 650 mg Al Hydroxide/Mg Hydroxide (Magnesium Hydrox/Alum Hydrox 30 Ml Oral.Susp) 30 ml PO Q6H PRN PRN Reason: Heartburn/Nausea Last Admin: 08/15/22 13:02 Dose: 30 ml Buprenorphine/Naloxone (Buprenorphine/Naloxone 8/2 Mg Film) 1 film SUBLINGUAL DAILY@0900 [facility] Last Admin: 08/17/22 07:58 Dose: 1 film Clonazepam (Clonazepam 1 Mg Tablet) 1 mg PO TID PRN PRN Reason: anxiety Last Admin: 08/17/22 11:53 Dose: 1 mg Gabapentin (Gabapentin 400 Mg Capsule) 800 mg PO TID [facility] Last Admin: 08/17/22 14:47 Dose: 800 mg Magnesium Hydroxide (Milk Of Magnesia 30 Ml Oral.Susp) 30 ml PO DAILY PRN PRN Reason: Constipation Last Admin: 08/16/22 13:55 Dose: 30 ml Nicotine (Nicotine 21 Mg Patch.Td24) 21 mg TRANSDERMA DAILY [facility] Last Admin: 08/17/22 07:58 Dose: 21 mg Paroxetine HCl (Paroxetine Hcl 30 Mg Tablet) 60 mg PO DAILY [facility] Last Admin: 08/17/22 07:58 Dose: 60 mg Topiramate (Topiramate 25 Mg Tablet) 25 mg PO BID [facility] Last Admin: 08/17/22 07:58 Dose: 25 mg Trazodone HCl (Trazodone Hcl 50 Mg Tablet) 50 mg PO BEDTIME MRX1 PRN PRN Reason: Insomnia Ziprasidone (Ziprasidone 40 Mg Capsule) 40 mg PO BEDTIME [facility] Allergies Allergies Allergy/AdvReac Type Severity Reaction Status Date / Time No Known Allergies Allergy Verified 08/10/22 03:42 Assessment & Plan Assessment & Plan (1) PTSD (post-traumatic stress disorder): Status: Acute Code(s): F43.10 - Post-traumatic stress disorder, unspecified (2) Recurrent major depression: Status: Acute Code(s): F33.9 - Major depressive disorder, recurrent, unspecified (3) Opioid use disorder: Status: Acute Code(s): F11.90 - Opioid use, unspecified, uncomplicated Plan 42 yo female, history of PTSD, Recurrent Major Depression, Opiate Use Disorder, Alcohol Use Disorder with SI and plan to jump from a bridge (reports she did attempt this last week). Pt sent in transfer from [facility]. New med regime she is working with and finding tolerable-she would like to continue, and hoping to find longer term treatment to re-enforce sobriety. Plan: Collateral contact Continue OP med regime at this time with adjustments as needed. Addiction consult for recovery coaching and support Team will begin to apply for TSS programs with pt. Collateral contact Medical assessment 08/11/22: Discontinue Lorazepam Klonopin 1 mg bid prn Decrease Suboxone to 8 mg a.m. 4 mg 1700. UA and UA for G/C negative with sx of frequency. No STI 08/12/22: Increase Gabapentin to 600 mg tid (baseline dose by history). 08/14/22: Continue current regime and plan of care. 08/15/22: Topamax 25 mg bid Decrease Mirtazapine to 7.5 mg hs Discontinue evening Suboxone Haldol 5 mg bid prn 08/16: Increase GBP to 800 mg TID. 08/17/22: Discontinue Haldol Geodon 40 mg HS. Patient educated on: medication risk/benefits and therapeutic strategies Informed Consent: understands Reason for continued inpatient stay Substantial Risk for: rapid decompensation Time Spent With Patient Time: Total time managing care of this patient today ____ minutes.
[2022-08-17 18:00] VITALS: BP 91/53; PULSE 65; TEMP 36.2
[2022-08-18 08:43] VITALS: BP 102/62; PULSE 73; RESP 16; TEMP 36.4; O2SAT 95
[2022-08-18] MEDS: PARoxetine HCL 30 MG TABLET 60 MG PO (08:54)
[2022-08-18] MEDS: Acetaminophen 325 MG TABLET 650 MG PO (12:01)
[2022-08-18] MEDS: Milk of Magnesia 30 ML ORAL.SUSP PO (12:01)
--- NOTE | 2022-08-18 15:49 | HO.PSYCHPN ---
Subjective Subjective Date of Service: 08/18/22 Reason For Visit: F33.1 MDD, F10.20 AUD, F11.9 OUD Subjective Notes: Conditional Voluntary Healthcare Proxy: No Guardianship: No Medical Problems Affecting Mental Status: No Interim History: Accepted to [facility] for 08/22. Reports Geodon is tolerated and useful. Anxiety sx later this afternoon, pending outcome of prn Hydroxyzine and taking Geodon early. Medication Compliance: Yes Side effects from medications: No Attending Groups: Intermittent Review of Systems Acute medical concerns: No Medical Review of Systems: unchanged Mental Status Exam Mental Status Exam Patient Appearance: Appropriate Patient Orientation: Person, Place, Time and Situation Level of Consciousness: Alert Patient Behavior: Appropriate, Talkative, Cooperative, Anxious and Good Eye Contact Mood Description: Depressed and Anxious Affect Description: Flat Patient Cognition Impaired: No Ability to Follow Directions: Good Speech Pattern: Spontaneous Speech Memory Description: Episodic Impaired Diagnostics Vital Signs (24Hr): Vital Signs - 24 hr 08/17/22 18:00 08/18/22 08:43 Temperature 97.2 F 97.5 F Pulse Rate 65 73 Respiratory Rate 16 Blood Pressure 91/53 L 102/62 Pulse Oximetry 95 Oxygen Delivery Method Room Air Medications Medications Current Medications Acetaminophen (Acetaminophen 325 Mg Tablet) 650 mg PO Q6H PRN PRN Reason: Headache/Pain Mild Scale (1-3) Last Admin: 08/18/22 12:01 Dose: 650 mg Al Hydroxide/Mg Hydroxide (Magnesium Hydrox/Alum Hydrox 30 Ml Oral.Susp) 30 ml PO Q6H PRN PRN Reason: Heartburn/Nausea Last Admin: 08/15/22 13:02 Dose: 30 ml Buprenorphine/Naloxone (Buprenorphine/Naloxone 8/2 Mg Film) 1 film SUBLINGUAL DAILY@0900 [facility] Last Admin: 08/18/22 08:54 Dose: 1 film Clonazepam (Clonazepam 1 Mg Tablet) 1 mg PO TID PRN PRN Reason: anxiety Last Admin: 08/18/22 14:20 Dose: 1 mg Gabapentin (Gabapentin 400 Mg Capsule) 800 mg PO TID [facility] Last Admin: 08/18/22 14:20 Dose: 800 mg Magnesium Hydroxide (Milk Of Magnesia 30 Ml Oral.Susp) 30 ml PO DAILY PRN PRN Reason: Constipation Last Admin: 08/18/22 12:01 Dose: 30 ml Nicotine (Nicotine 21 Mg Patch.Td24) 21 mg TRANSDERMA DAILY [facility] Last Admin: 08/18/22 08:56 Dose: 21 mg Paroxetine HCl (Paroxetine Hcl 30 Mg Tablet) 60 mg PO DAILY [facility] Last Admin: 08/18/22 08:54 Dose: 60 mg Topiramate (Topiramate 25 Mg Tablet) 25 mg PO BID [facility] Last Admin: 08/18/22 08:54 Dose: 25 mg Trazodone HCl (Trazodone Hcl 50 Mg Tablet) 50 mg PO BEDTIME MRX1 PRN PRN Reason: Insomnia Ziprasidone (Ziprasidone 40 Mg Capsule) 40 mg PO BEDTIME [facility] Last Admin: 08/17/22 20:02 Dose: 40 mg Allergies Allergies Allergy/AdvReac Type Severity Reaction Status Date / Time No Known Allergies Allergy Verified 08/10/22 03:42 Assessment & Plan Assessment & Plan (1) PTSD (post-traumatic stress disorder): Status: Acute Code(s): F43.10 - Post-traumatic stress disorder, unspecified (2) Recurrent major depression: Status: Acute Code(s): F33.9 - Major depressive disorder, recurrent, unspecified (3) Opioid use disorder: Status: Acute Code(s): F11.90 - Opioid use, unspecified, uncomplicated Plan 42 yo female, history of PTSD, Recurrent Major Depression, Opiate Use Disorder, Alcohol Use Disorder with SI and plan to jump from a bridge (reports she did attempt this last week). Pt sent in transfer from [facility]. New med regime she is working with and finding tolerable-she would like to continue, and hoping to find longer term treatment to re-enforce sobriety. Plan: Collateral contact Continue OP med regime at this time with adjustments as needed. Addiction consult for recovery coaching and support Team will begin to apply for TSS programs with pt. Collateral contact Medical assessment 08/11/22: Discontinue Lorazepam Klonopin 1 mg bid prn Decrease Suboxone to 8 mg a.m. 4 mg 1700. UA and UA for G/C negative with sx of frequency. No STI 08/12/22: Increase Gabapentin to 600 mg tid (baseline dose by history). 08/14/22: Continue current regime and plan of care. 08/15/22: Topamax 25 mg bid Decrease Mirtazapine to 7.5 mg hs Discontinue evening Suboxone Haldol 5 mg bid prn 08/16: Increase GBP to 800 mg TID. 08/18/22: Continue current regime and plan of care Discharge 08/22 to [facility] Patient educated on: medication risk/benefits and therapeutic strategies Informed Consent: understands Reason for continued inpatient stay Substantial Risk for: rapid decompensation Time Spent With Patient Time: Total time managing care of this patient today ____ minutes.
[2022-08-18 16:07] VITALS: BP 105/67; PULSE 79; TEMP 36.6; O2SAT 96
[2022-08-19] MEDS: PARoxetine HCL 30 MG TABLET 60 MG PO (08:04)
[2022-08-19 08:20] VITALS: BP 108/67; PULSE 67; RESP 16; TEMP 36.4; O2SAT 95
--- NOTE | 2022-08-19 10:49 | HO.PSYCHPN ---
Subjective Subjective Date of Service: 08/19/22 Reason For Visit: F33.1 MDD, F10.20 AUD, F11.9 OUD Subjective Notes: Conditional Voluntary Interim History: Pt reports feeling less depressed. She denies SI/HI. She denies VH/AH. Pt reports sleeping better. She continues to report that anxiety is high, although we reviewed current medications which include 3 mg of clonazepam, gabapentin 800mg po TID, suboxone. Pt later reported she can manage it. She report topamax has been helpful for mood and cocaine cravings. Agrees to increase to 50mg po BID. She also reports s/s of UTI- UA in 08/11 did show leukocitosis, although culture was not sent. Will start bactrim DS 1 tab BID x 7 days. Pt also asks that suboxone is decreased to 4mg SL daily from 8mg. we discussed concern of relapsed, but pt insisted in lowering it. Pt will be discharged on Monday to [facility]. Review of Systems Review of Systems negative except HPI Yes all other systems are reviewed and are negative (denies current medical issues) Constitutional: Reports difficulty sleeping, Reports lethargy and Reports poor appetite Eyes: Reports no additional eye complaints Reports system reviewed and no additional complaints, except as documented Cardiovascular: Reports no additional cardiovascular complaints Respiratory: Reports no additional respiratory complaints Gastrointestinal: Reports no additional gastrointestinal complaints Musculoskeletal: Reports no additional musculoskeletal complaints Skin/Breast: Reports system reviewed and no additional complaints, except as docu Reports system reviewed and no additional complaints, except as documented and Reports behavioral changes Psychiatric: Reports abnormal sleep pattern, Reports anxiety, Reports behavioral changes, Reports depression, Reports difficulty concentrating, Reports hopelessness, Reports anhedonia, Reports panic attacks and Reports suicidal ideation Endocrine: Reports no additional endocrine complaints Hematologic/Lymphatic: Reports no additional hematologic/lymphatic complaints Allergic/Immunologic: Reports no additional allergic/immunologic complaints Mental Status Exam Mental Status Exam Patient Appearance: Appropriate Patient Orientation: Person, Place, Time and Situation Level of Consciousness: Alert Patient Behavior: Appropriate, Talkative, Cooperative, Anxious and Good Eye Contact Mood Description: Depressed and Anxious Affect Description: Flat Patient Cognition Impaired: No Ability to Follow Directions: Good Speech Pattern: Spontaneous Speech Memory Description: Episodic Impaired Diagnostics Vital Signs (24Hr): Vital Signs - 24 hr 08/18/22 16:07 08/19/22 08:20 Temperature 97.8 F 97.5 F Pulse Rate 79 67 Respiratory Rate 16 Blood Pressure 105/67 108/67 Pulse Oximetry 96 95 Oxygen Delivery Method Room Air Room Air Medications Medications Current Medications Acetaminophen (Acetaminophen 325 Mg Tablet) 650 mg PO Q6H PRN PRN Reason: Headache/Pain Mild Scale (1-3) Last Admin: 08/18/22 12:01 Dose: 650 mg Al Hydroxide/Mg Hydroxide (Magnesium Hydrox/Alum Hydrox 30 Ml Oral.Susp) 30 ml PO Q6H PRN PRN Reason: Heartburn/Nausea Last Admin: 08/15/22 13:02 Dose: 30 ml Buprenorphine/Naloxone (Buprenorphine/Naloxone 8/2 Mg Film) 1 film SUBLINGUAL DAILY@0900 [facility] Last Admin: 08/19/22 08:58 Dose: 1 film Clonazepam (Clonazepam 1 Mg Tablet) 1 mg PO TID PRN PRN Reason: anxiety Last Admin: 08/19/22 08:58 Dose: 1 mg Gabapentin (Gabapentin 400 Mg Capsule) 800 mg PO TID [facility] Last Admin: 08/19/22 08:04 Dose: 800 mg Hydroxyzine HCl (Hydroxyzine Hcl 50 Mg Tablet) 50 mg PO Q6H PRN PRN Reason: anxiety Last Admin: 08/19/22 10:46 Dose: 50 mg Magnesium Hydroxide (Milk Of Magnesia 30 Ml Oral.Susp) 30 ml PO DAILY PRN PRN Reason: Constipation Last Admin: 08/18/22 12:01 Dose: 30 ml Nicotine (Nicotine 21 Mg Patch.Td24) 21 mg TRANSDERMA DAILY [facility] Last Admin: 08/19/22 08:58 Dose: 21 mg Paroxetine HCl (Paroxetine Hcl 30 Mg Tablet) 60 mg PO DAILY [facility] Last Admin: 08/19/22 08:04 Dose: 60 mg Topiramate (Topiramate 25 Mg Tablet) 25 mg PO BID [facility] Last Admin: 08/19/22 08:58 Dose: 25 mg Trazodone HCl (Trazodone Hcl 50 Mg Tablet) 50 mg PO BEDTIME PRN PRN Reason: Insomnia Trimethoprim/Sulfamethoxazole (Sulfamethox/Trimeth 800/160 Tablet) 1 tab PO Q12H [facility] Stop: 08/25/22 22:46 Last Admin: 08/19/22 10:46 Dose: 1 tab Ziprasidone (Ziprasidone 40 Mg Capsule) 40 mg PO BEDTIME [facility] Last Admin: 08/18/22 16:13 Dose: 40 mg Allergies Allergies Allergy/AdvReac Type Severity Reaction Status Date / Time No Known Allergies Allergy Verified 08/10/22 03:42 Assessment & Plan Assessment & Plan (1) PTSD (post-traumatic stress disorder): Status: Acute Code(s): F43.10 - Post-traumatic stress disorder, unspecified (2) Recurrent major depression: Status: Acute Code(s): F33.9 - Major depressive disorder, recurrent, unspecified (3) Opioid use disorder: Status: Acute Code(s): F11.90 - Opioid use, unspecified, uncomplicated Plan 42 yo female, history of PTSD, Recurrent Major Depression, Opiate Use Disorder, Alcohol Use Disorder with SI and plan to jump from a bridge (reports she did attempt this last week). Pt sent in transfer from [facility]. New med regime she is working with and finding tolerable-she would like to continue, and hoping to find longer term treatment to re-enforce sobriety. Plan: Collateral contact Continue OP med regime at this time with adjustments as needed. Addiction consult for recovery coaching and support Team will begin to apply for TSS programs with pt. Collateral contact Medical assessment 08/11/22: Discontinue Lorazepam Klonopin 1 mg bid prn Decrease Suboxone to 8 mg a.m. 4 mg 1700. UA and UA for G/C negative with sx of frequency. No STI 08/12/22: Increase Gabapentin to 600 mg tid (baseline dose by history). 08/14/22: Continue current regime and plan of care. 08/15/22: Topamax 25 mg bid Decrease Mirtazapine to 7.5 mg hs Discontinue evening Suboxone Haldol 5 mg bid prn 08/16: Increase GBP to 800 mg TID. 08/18/22: Continue current regime and plan of care Discharge 08/22 to [facility] program 08/19 increase topamax to 50mg po BID. decrease suboxone per pt request to 4mg SL daily. Start bactrim 1 tab BID x 7 days, uti- pt reports dysuria, frequency and UA in 08/11 did show leukocitocys although culture not completed. Reason for continued inpatient stay Substantial Risk for: inability to function Time Spent With Patient Time: Total time managing care of this patient today ____ minutes.
[2022-08-19] MEDS: Milk of Magnesia 30 ML ORAL.SUSP PO (11:53)
[2022-08-19] MEDS: Acetaminophen 325 MG TABLET 650 MG PO (16:23)
[2022-08-19 18:00] VITALS: BP 126/75; PULSE 91; RESP 20; TEMP 36.4; O2SAT 97
[2022-08-20 08:24] VITALS: BP 112/84; PULSE 77; RESP 16; TEMP 36.3; O2SAT 95
[2022-08-20] MEDS: PARoxetine HCL 30 MG TABLET 60 MG PO (08:30)
[2022-08-20] MEDS: Milk of Magnesia 30 ML ORAL.SUSP PO (09:22)
--- NOTE | 2022-08-20 10:07 | HO.PSYCHPN ---
Subjective Subjective Date of Service: 08/20/22 Reason For Visit: F33.1 MDD, F10.20 AUD, F11.9 OUD Subjective Notes: Conditional Voluntary Healthcare Proxy: No Guardianship: No Medical Problems Affecting Mental Status: No Interim History: Patient feels she is on too much paxil would like decrease we discussed would need taper- agreed to 40mg tonight 50mg tomorrow night and ? 40mg on dc- planning to go to program at [facility] on dc denies current si Medication Compliance: Yes Side effects from medications: No Attending Groups: Intermittent Review of Systems Acute medical concerns: No Medical Review of Systems: unchanged Mental Status Exam Mental Status Exam Patient Appearance: Appropriate Patient Orientation: Person, Place, Time and Situation Level of Consciousness: Awake Patient Behavior: Appropriate, Talkative and Distractible Mood Description: Anxious Affect Description: Appropriate Patient Cognition Impaired: No Ability to Follow Directions: Good Speech Pattern: Clear Hallucinations: None Delusions: Not Present Thought Process: Intact and Goal Oriented Thought Content: positive for Intact Judgement: Fair Diagnostics Vital Signs (24Hr): Vital Signs - 24 hr 08/19/22 18:00 08/20/22 08:24 Temperature 97.6 F 97.4 F Pulse Rate 91 77 Respiratory Rate 20 16 Blood Pressure 126/75 112/84 Pulse Oximetry 97 95 Oxygen Delivery Method Room Air Room Air Labs Labs: Laboratory Results - last 48 hr 08/17/22 13:10 TB Test (T-Spot) Com Negative TB Test Nil Control Passed TB Test Panel A 1 TB Test Panel B 1 TB Test Positive Cntrl Passed Medications Medications Current Medications Acetaminophen (Acetaminophen 325 Mg Tablet) 650 mg PO Q6H PRN PRN Reason: Headache/Pain Mild Scale (1-3) Last Admin: 08/19/22 16:23 Dose: 650 mg Al Hydroxide/Mg Hydroxide (Magnesium Hydrox/Alum Hydrox 30 Ml Oral.Susp) 30 ml PO Q6H PRN PRN Reason: Heartburn/Nausea Last Admin: 08/15/22 13:02 Dose: 30 ml Buprenorphine/Naloxone (Buprenorphine/Naloxone 4/1 Mg Film) 1 film SUBLINGUAL DAILY [facility] Last Admin: 08/20/22 08:30 Dose: 1 film Clonazepam (Clonazepam 1 Mg Tablet) 1 mg PO TID PRN PRN Reason: anxiety Last Admin: 08/20/22 08:31 Dose: 1 mg Gabapentin (Gabapentin 400 Mg Capsule) 800 mg PO TID [facility] Last Admin: 08/20/22 08:30 Dose: 800 mg Hydroxyzine HCl (Hydroxyzine Hcl 50 Mg Tablet) 50 mg PO Q6H PRN PRN Reason: anxiety Last Admin: 08/19/22 19:46 Dose: 50 mg Magnesium Hydroxide (Milk Of Magnesia 30 Ml Oral.Susp) 30 ml PO DAILY PRN PRN Reason: Constipation Last Admin: 08/20/22 09:22 Dose: 30 ml Nicotine (Nicotine 21 Mg Patch.Td24) 21 mg TRANSDERMA DAILY [facility] Last Admin: 08/20/22 08:30 Dose: 21 mg Paroxetine HCl (Paroxetine Hcl 30 Mg Tablet) 60 mg PO DAILY [facility] Last Admin: 08/20/22 08:30 Dose: 60 mg Topiramate (Topiramate 25 Mg Tablet) 50 mg PO BID [facility] Last Admin: 08/20/22 08:30 Dose: 50 mg Trazodone HCl (Trazodone Hcl 50 Mg Tablet) 50 mg PO BEDTIME PRN PRN Reason: Insomnia Trimethoprim/Sulfamethoxazole (Sulfamethox/Trimeth 800/160 Tablet) 1 tab PO Q12H [facility] Stop: 08/25/22 22:46 Last Admin: 08/19/22 22:51 Dose: 1 tab Ziprasidone (Ziprasidone 40 Mg Capsule) 40 mg PO BEDTIME [facility] Last Admin: 08/19/22 19:46 Dose: 40 mg Allergies Allergies Allergy/AdvReac Type Severity Reaction Status Date / Time No Known Allergies Allergy Verified 08/10/22 03:42 Assessment & Plan Assessment & Plan (1) PTSD (post-traumatic stress disorder): Status: Acute Code(s): F43.10 - Post-traumatic stress disorder, unspecified (2) Recurrent major depression: Status: Acute Code(s): F33.9 - Major depressive disorder, recurrent, unspecified (3) Opioid use disorder: Status: Acute Code(s): F11.90 - Opioid use, unspecified, uncomplicated Plan 42 yo female, history of PTSD, Recurrent Major Depression, Opiate Use Disorder, Alcohol Use Disorder with SI and plan to jump from a bridge (reports she did attempt this last week). Pt sent in transfer from [facility]. New med regime she is working with and finding tolerable-she would like to continue, and hoping to find longer term treatment to re-enforce sobriety. Plan: Collateral contact Continue OP med regime at this time with adjustments as needed. Addiction consult for recovery coaching and support Team will begin to apply for TSS programs with pt. Collateral contact Medical assessment 08/11/22: Discontinue Lorazepam Klonopin 1 mg bid prn Decrease Suboxone to 8 mg a.m. 4 mg 1700. UA and UA for G/C negative with sx of frequency. No STI 08/12/22: Increase Gabapentin to 600 mg tid (baseline dose by history). 08/14/22: Continue current regime and plan of care. 08/15/22: Topamax 25 mg bid Decrease Mirtazapine to 7.5 mg hs Discontinue evening Suboxone Haldol 5 mg bid prn 08/16: Increase GBP to 800 mg TID. 08/18/22: Continue current regime and plan of care Discharge 08/22 to [facility] 08/19 increase topamax to 50mg po BID. decrease suboxone per pt request to 4mg SL daily. Start bactrim 1 tab BID x 7 days, uti- pt reports dysuria, frequency and UA in 08/11 did show leukocitocys although culture not completed. 08/20- requesting taper of Paxil feels dose is too high- Patient educated on: medication risk/benefits Informed Consent: understands Reason for continued inpatient stay Substantial Risk for: rapid decompensation Time Spent With Patient Time: Total time managing care of this patient today ____ minutes.
[2022-08-20 18:37] VITALS: BP 121/73; PULSE 86; TEMP 36.4
[2022-08-21 08:36] VITALS: BP 129/76; PULSE 83; RESP 16; TEMP 36.2; O2SAT 95
--- NOTE | 2022-08-21 10:19 | HO.PSYCHPN ---
Subjective Subjective Date of Service: 08/21/22 Reason For Visit: F33.1 MDD, F10.20 AUD, F11.9 OUD Subjective Notes: Conditional Voluntary Interim History: Pt going to [facility] program tomorrow continues to want to taper her paxil which went down to 50mg today - says wants 40mg tomorrow- also reports constipation and request colace/ or other- gave her ducolax as well Discussed prn of ziprasodone like she used to have on haldol. Nursing reports pt doesn't realize she is talking to herself in the mai as she walks back and forth. Medication Compliance: Yes Side effects from medications: Yes (constipation) Mental Status Exam Mental Status Exam Patient Appearance: Appropriate Patient Orientation: Person, Place, Time and Situation Level of Consciousness: Awake Patient Behavior: Appropriate, Talkative and Distractible Mood Description: Anxious Affect Description: Appropriate Patient Cognition Impaired: No Ability to Follow Directions: Good Speech Pattern: Clear Hallucinations: None Delusions: Not Present Thought Process: Intact and Goal Oriented Thought Content: positive for Intact Judgement: Fair Diagnostics Vital Signs (24Hr): Vital Signs - 24 hr 08/20/22 18:37 08/21/22 08:36 Temperature 97.5 F 97.2 F Pulse Rate 86 83 Respiratory Rate 16 Blood Pressure 121/73 129/76 Pulse Oximetry 95 Oxygen Delivery Method Room Air Labs Labs: Laboratory Results - last 48 hr 08/17/22 13:10 TB Test (T-Spot) Com Negative TB Test Nil Control Passed TB Test Panel A 1 TB Test Panel B 1 TB Test Positive Cntrl Passed Medications Medications Current Medications Acetaminophen (Acetaminophen 325 Mg Tablet) 650 mg PO Q6H PRN PRN Reason: Headache/Pain Mild Scale (1-3) Last Admin: 08/19/22 16:23 Dose: 650 mg Al Hydroxide/Mg Hydroxide (Magnesium Hydrox/Alum Hydrox 30 Ml Oral.Susp) 30 ml PO Q6H PRN PRN Reason: Heartburn/Nausea Last Admin: 08/15/22 13:02 Dose: 30 ml Buprenorphine/Naloxone (Buprenorphine/Naloxone 4/1 Mg Film) 1 film SUBLINGUAL DAILY [facility] Last Admin: 08/21/22 08:40 Dose: 1 film Clonazepam (Clonazepam 1 Mg Tablet) 1 mg PO TID PRN PRN Reason: anxiety Last Admin: 08/21/22 08:40 Dose: 1 mg Gabapentin (Gabapentin 400 Mg Capsule) 800 mg PO TID [facility] Last Admin: 08/21/22 08:40 Dose: 800 mg Hydroxyzine HCl (Hydroxyzine Hcl 50 Mg Tablet) 50 mg PO Q6H PRN PRN Reason: anxiety Last Admin: 08/20/22 16:46 Dose: 50 mg Magnesium Hydroxide (Milk Of Magnesia 30 Ml Oral.Susp) 30 ml PO DAILY PRN PRN Reason: Constipation Last Admin: 08/20/22 09:22 Dose: 30 ml Nicotine (Nicotine 21 Mg Patch.Td24) 21 mg TRANSDERMA DAILY [facility] Last Admin: 08/21/22 08:40 Dose: 21 mg Paroxetine HCl (Paroxetine Hcl 10 Mg Tablet) 50 mg PO DAILY [facility] Last Admin: 08/21/22 08:40 Dose: 50 mg Topiramate (Topiramate 25 Mg Tablet) 50 mg PO BID [facility] Last Admin: 08/21/22 08:40 Dose: 50 mg Trazodone HCl (Trazodone Hcl 50 Mg Tablet) 50 mg PO BEDTIME PRN PRN Reason: Insomnia Last Admin: 08/20/22 19:24 Dose: 50 mg Trimethoprim/Sulfamethoxazole (Sulfamethox/Trimeth 800/160 Tablet) 1 tab PO Q12H [facility] Stop: 08/25/22 22:46 Last Admin: 08/20/22 20:01 Dose: 1 tab Ziprasidone (Ziprasidone 40 Mg Capsule) 40 mg PO BEDTIME [facility] Last Admin: 08/20/22 19:23 Dose: 40 mg Allergies Allergies Allergy/AdvReac Type Severity Reaction Status Date / Time No Known Allergies Allergy Verified 08/10/22 03:42 Assessment & Plan Assessment & Plan (1) PTSD (post-traumatic stress disorder): Status: Acute Code(s): F43.10 - Post-traumatic stress disorder, unspecified (2) Recurrent major depression: Status: Acute Code(s): F33.9 - Major depressive disorder, recurrent, unspecified (3) Opioid use disorder: Status: Acute Code(s): F11.90 - Opioid use, unspecified, uncomplicated Plan 42 yo female, history of PTSD, Recurrent Major Depression, Opiate Use Disorder, Alcohol Use Disorder with SI and plan to jump from a bridge (reports she did attempt this last week). Pt sent in transfer from [facility]. New med regime she is working with and finding tolerable-she would like to continue, and hoping to find longer term treatment to re-enforce sobriety. Plan: Collateral contact Continue OP med regime at this time with adjustments as needed. Addiction consult for recovery coaching and support Team will begin to apply for TSS programs with pt. Collateral contact Medical assessment 08/11/22: Discontinue Lorazepam Klonopin 1 mg bid prn Decrease Suboxone to 8 mg a.m. 4 mg 1700. UA and UA for G/C negative with sx of frequency. No STI 08/12/22: Increase Gabapentin to 600 mg tid (baseline dose by history). 08/14/22: Continue current regime and plan of care. 08/15/22: Topamax 25 mg bid Decrease Mirtazapine to 7.5 mg hs Discontinue evening Suboxone Haldol 5 mg bid prn 08/16: Increase GBP to 800 mg TID. 08/18/22: Continue current regime and plan of care Discharge 08/22 to [facility] 08/19 increase topamax to 50mg po BID. decrease suboxone per pt request to 4mg SL daily. Start bactrim 1 tab BID x 7 days, uti- pt reports dysuria, frequency and UA in 08/11 did show leukocitocys although culture not completed. 08/20- requesting taper of Paxil feels dose is too high- 08/21 add prn of ziprasodone, also given anticonstipation regimen, will further dec paroxetine to 40mg per pt request Patient educated on: medication risk/benefits and medical condition Informed Consent: understands Reason for continued inpatient stay Substantial Risk for: inability to function and rapid decompensation Time Spent With Patient Time: Total time managing care of this patient today ____ minutes.
[2022-08-21] MEDS: Milk of Magnesia 30 ML ORAL.SUSP PO (15:59)
[2022-08-21 18:49] VITALS: BP 116/76; PULSE 91; TEMP 36.1
[2022-08-21] MEDS: Acetaminophen 325 MG TABLET 650 MG PO (19:43)
[2022-08-22 08:05] VITALS: BP 111/61; PULSE 96; RESP 18; TEMP 35.6; O2SAT 95
--- NOTE | 2022-08-22 20:16 | PM.PSYDC ---
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 Has provider been notified: No Attending physician on discharge: John Paul Huang Discharging clinician: Adriana Mantilla DS: Diagnosis Discharge Diagnosis (1) PTSD (post-traumatic stress disorder): Status: Acute (2) Recurrent major depression: Status: Acute (3) Opioid use disorder: Status: Acute DS: Medications Discharge Medications Home Medications: Previous Rx's Medication Instructions Recorded buprenorphine 4 mg-naloxone 1 mg 1 film sublingual DAILY #1 ea 08/21/22 sublingual film (Suboxone) docusate sodium 100 mg capsule 100 mg PO BID #60 caps 08/21/22 nicotine 21 mg/24 hr daily 21 mg transdermal DAILY #30 ea 08/21/22 transdermal patch paroxetine HCl 40 mg tablet 40 mg PO DAILY #30 tabs 08/21/22 sulfamethoxazole 800 1 tab PO Q12H #8 tabs 08/21/22 mg-trimethoprim 160 mg tablet topiramate 25 mg tablet 50 mg PO BID #120 tabs 08/21/22 ziprasidone HCl 20 mg capsule 20 mg PO BID PRN anxiety/psychosis 08/21/22 #60 caps ziprasidone HCl 40 mg capsule 40 mg PO BEDTIME #30 caps 08/21/22 clonazepam 1 mg tablet (Klonopin) 1 mg PO BID #14 tabs 08/22/22 gabapentin 800 mg tablet 800 mg PO TID #21 tabs 08/22/22 Mental Status Exam Mental Status Exam Patient Appearance: Appropriate Patient Orientation: Person, Place, Time and Situation Level of Consciousness: Alert Patient Behavior: Appropriate, Talkative, Cooperative, Anxious and Good Eye Contact Mood Description: Depressed and Anxious Affect Description: Flat Patient Cognition Impaired: No Ability to Follow Directions: Good Speech Pattern: Spontaneous Speech Memory Description: Episodic Impaired Data Data Completed and Pending Completed studies during hospitalization [Text1]: 08/17/22 13:10 TB Test (T-Spot) Com Negative TB Test Nil Control Passed TB Test Panel A 1 TB Test Panel B 1 TB Test Positive Cntrl Passed DS: Summary Hospital Course Hospital Course: Admission to adult psychiatry for exacerbation of PTSD, recurrent major depression with SI, plan and intent, having made an attempt a week prior to admission and opiate use disorder. Medications were adjusted, pt was encouarged to participate in the milieu and pt continued to pursue residential treatment options for aftercare and was accepted to the [facility] program for ongoing treatment. Time spent discussing smoking cessation with patient: 3 to 10 minutes Status at Discharge Functional status at discharge: independent ambulation Overall status at discharge: patient is progressing back to baseline Time Spent with Patient Time attestation: Total time managing care of this patient today ____ minutes. Time spent: Greater than 30 minutes Discharge Plan Discharge Anticipated Discharge Date/Time: 08/22/22 12:00 Patient Disposition: Xfer Other Discharge Diagnosis: PTSD Recurrent Major Depression Opiate Use Disorder-currently on Suboxone Referrals: [facility] [Other] - 1 Week ([facility] Referral for Substance use treatment Patient accepted to program has to call prior to discharge to ensure bed available for detox step down with transition to [facility] program after.) Darvin Gauthier: [facility] ([facility]):psychiatry [Other] - 09/22/22 3:00 pm (Initial Psychiatric Evaluation for Medication Management Appointment is in person at [facility] outpatient clinic in [place]) [facility] [Other] - 1 Week (Referral for substance abuse treatment Patient may follow-up on referral after discharge.) [facility] [Other] - 1 Week (Referral to [facility] co-occurring substance use treatment program) [facility] [Other] - 1 Week (Referral to [facility] Patient should follow-up on referral after discharge.) [facility] [Other] - 1 Week (Referral to [facility] Patient may follow-up on referral after discharge ) [facility] [Other] - 1 Week (Referral for substance use treatment Patient should follow-up on referral after discharge ) [facility] [Other] - 1 Week ([facility]erral to [facility] Patient should follow-up on referral after discharge.) [facility] [Other] - 1 Week (Referral to [facility] Patient should follow-up on referral after discharge) [facility] [Other] - 08/23/22 1:00 pm (Medication Assisted Treatment Appointment ) Nuvia Swann: [facility] ([facility]):Therapist [Other] - 08/26/22 10:00 am (Initial Diagnostic Evaluation for Therapy Appointment is in person at [facility] in [place].) Discharge Medications: New paroxetine HCl 40 mg Tablet 40 mg PO DAILY Qty: 30 1RF topiramate 25 mg Tablet 50 mg PO BID Qty: 120 1RF ziprasidone HCl 20 mg Capsule 20 mg PO BID PRN (Reason: anxiety/psychosis) Qty: 60 1RF docusate sodium 100 mg Capsule 100 mg PO BID Qty: 60 1RF gabapentin 800 mg tablet 800 mg PO TID Qty: 21 8RF clonazepam [Klonopin] 1 mg tablet 1 mg PO BID Qty: 14 0RF Discontinued paroxetine HCl [Paxil] 30 mg Tablet 60 mg PO DAILY gabapentin 300 mg capsule 300 mg PO TID mirtazapine 15 mg tablet 15 mg PO BEDTIME lorazepam 1 mg Tablet 1 mg PO BID PRN (Reason: anxiety) buprenorphine-naloxone [Suboxone] 8-2 mg Film 2 film BUCCAL DAILY Rx Instructions: place 1 film on inside of (each) cheek No Action buprenorphine-naloxone [Suboxone] 8-2 mg Film 1 film BUCCAL DAILY buprenorphine-naloxone [Suboxone] 4-1 mg film 1 film sublingual BEDTIME Discharge Orders: Discharge Order (Routine); Ordered 08/22/22 Ordered By: Adriana Mantilla Diet: Advance to usual diet Activity on Discharge: As tolerated Stand Alone Forms: Patient Portal Discharge page, Community Support Care Plan Goals: Maintain mood and behavioral stabilization Ongoing work on sobriety Health Concerns: Maintain mood and behavioral stabilization Ongoing work on sobriety Plan of Treatment: Whitney will admit to [facility] program today Attend follow up appointments Take medications as directed Assessment: Whitney will attend [facility] today. A plan she has worked on while admitted. No SI/HI. Agrees with plan of care. Discharge Date/Time: 08/22/22 09:13
== END 2022-08-22 09:13 | disposition other institution (70) | DRG 751 ==
PROVIDERS: Family Medicine; Admitting Provider Psychiatry & Neurology Psychiatry; Visit Provider Clinical Nurse Specialist Psychiatric/Mental Health, Adult
DX: F33.9 Major depressive disorder, recurrent, unspecified (principal); F11.20 Opioid dependence, uncomplicated; F43.10 Post-traumatic stress disorder, unspecified; Z79.899 Other long term (current) drug therapy
CPT/HCPCS: 0353U; 36415; 80061; 81001; 82607; 82746; 83036; 83735; 84439; 84443; 86481; 93005; J2060

== ENCOUNTER → 2022-08-09 22:58 | Outpatient (BNV) | payer OTHER, SELFPAY | PROVIDERS: Admitting Provider Psychiatry & Neurology Psychiatry; Visit Provider Clinical Nurse Specialist Psychiatric/Mental Health, Adult | DX: F43.11 Post-traumatic stress disorder, acute (principal); F33.2 Major depressive disorder, recurrent severe without psychotic features; F11.90 Opioid use, unspecified, uncomplicated | CPT/HCPCS: 90792; 99231; 99232; 99239 ==

== ENCOUNTER 2022-08-30 20:23 | Emergency (ER) | payer OTHER, SELFPAY ==
[2022-08-30 20:33] VITALS: BP 127/95; BP 139/78; PULSE 106; PULSE 89; RESP 16; TEMP 37.2; O2SAT 96; O2SAT 98; BMI 26.6
[2022-08-30 21:07] VITALS: BP 127/95; PULSE 89; RESP 16; TEMP 37.2; O2SAT 96
[2022-08-30 21:09] LABS: MANUAL DIFF FLAG NO
[2022-08-30 21:11] LABS: Basophils Percent Auto 0.5 % (0-2); Eosinophils Absolute Auto 0.1 X10*3/uL (0.0-0.4); Eosinophils Percent Auto 0.8 % (0-4); Hemoglobin 14.5 g/dl (12.0-16.0); Imm Gran Abs Auto 0.02 X10*3/uL (0.00-0.03); Imm Gran Pct Auto 0.2 % (0.0-0.4); Lymphocytes Absolute Auto 2.9 X10*3/uL (1.2-4.9); Lymphocytes Percent Auto 34.5 % (20-40); Mean Corpuscular HGB Conc 33.7 g/dl (31.0-35.0); Mean Corpuscular Hemoglobin 28.5 pg (27.0-33.0); Mean Corpuscular Volume 84.5 fL (80.0-98.0); Mean Platelet Volume 8.8 fL (9.4-12.3); Monocytes Absolute Auto 0.4 X10*3/uL (0.1-1.2); Monocytes Percent Auto 5.2 % (2-11); Neutrophils Absolute Auto 4.9 x10*3/uL (2.0-8.3); Neutrophils Percent Auto 58.8 % (45-73); Platelet Count 307 X10*3/uL (160-400); Red Blood Count 5.09 X10*6/uL (4.20-5.50); Red Cell Distribution Width 12.5 % (11.0-16.0); White Blood Count 8.4 X10*3/uL (4.8-10.8)
[2022-08-30 21:27] LABS: Acetaminophen LAB < 17 mcg/mL (<30); Alanine Aminotransferase 85 U/L (0-31); Albumin Level 4.8 g/dL (3.5-5.0); Alkaline Phosphatase 69 U/L (39-117); Anion Gap 14 (12-20); Aspartate Amino Transferase 55 U/L (5-31); Bilirubin Total 0.4 mg/dL (0.0-1.0); Blood Urea Nitrogen 17 mg/dL (9-16); Calcium 9.9 mg/dL (8.4-10.2); Carbon Dioxide 24 mmol/L (22-29); Chloride 102 mmol/L (96-108); Estimated Glomerular Filt Rate 53; Ethanol < 10 mg/dL; Glucose Random 117 mg/dL (60-115); Potassium 4.6 mmol/L (3.3-5.1); Salicylate < 5.0 mg/dL (15-30); Sodium 135 mmol/L (135-145); Total Protein 8.5 g/dL (6.5-8.0)
--- NOTE | 2022-08-30 22:11 | ED.PSYCH ---
HPI - Psych General Chief Complaint: Psychiatric Symptoms Stated Complaint: Crisis Time Seen by Provider: 08/30/22 20:38 Source: patient Mode of arrival: EMS Limitations: no limitations History of Present Illness HPI Narrative: Patient comes to the emergency room complaining of severe anxiety, suicidal ideation due to severe anxiety. Patient states that she was walking down the street and suddenly had amnesia, then know where she was, started having a panic attack, then brought to the emergency room. Patient states that she has had history of admission in the past Related Data Home Medications Medication Instructions Recorded Confirmed buprenorphine 4 mg-naloxone 1 mg 1 film sublingual BEDTIME 08/30/22 08/30/22 sublingual film (Suboxone) buprenorphine 8 mg-naloxone 2 mg 1 film buccal DAILY 08/30/22 08/30/22 sublingual film (Suboxone) Previous Rx's Medication Instructions Recorded docusate sodium 100 mg capsule 100 mg PO BID #60 caps 08/21/22 paroxetine HCl 40 mg tablet 40 mg PO DAILY #30 tabs 08/21/22 topiramate 25 mg tablet 50 mg PO BID #120 tabs 08/21/22 ziprasidone HCl 20 mg capsule 20 mg PO BID PRN anxiety/psychosis 08/21/22 #60 caps clonazepam 1 mg tablet (Klonopin) 1 mg PO BID #14 tabs 08/22/22 gabapentin 800 mg tablet 800 mg PO TID #21 tabs 08/22/22 Allergies Allergy/AdvReac Type Severity Reaction Status Date / Time No Known Allergies Allergy Verified 08/10/22 03:42 Review of Systems Review of Systems: Constitutional : No Weight loss, No Fever, No Chills, No Night Sweats, No Fatigue, No Malaise ENT/Mouth : No Hearing loss, No Ear Pain, No Nasal Congestion, No Sinus Pain, No Hoarseness, No sore throat, No Rhinorrhea, No Swallowing Difficulty Eyes: No Eye Pain, No Swelling, No Redness, No Foreign Body, No Discharge, No Vision Changes Cardiovascular : No Chest Pain, No SOB, No Dyspnea on Exertion, No Orthopnea, No Edema, No Palpitations Respiratory : No Cough, No Sputum, No Wheezing, No Smoke Exposure, No Dyspnea Gastrointestinal : No Nausea, No Vomiting, No Diarrhea, No Constipation, No abdominal Pain, No Hematochezia, No Melena Genitourinary : no irregular bleeding, No Dysuria, No Urinary Frequency, No Hematuria, No Urinary Incontinence, No Urgency, No Flank Pain, No Urinary Flow Changes, No Hesitancy Musculoskeletal : No joint pain, No Myalgias, No Joint Swelling Skin : No Skin Lesions, No rash Neuro : No Weakness, No Numbness, No Paresthesias, No Loss of Consciousness, No Dizziness, No Headache Psych : Complaining of severe anxiety with panic attacks,, No Depression, complaining of suicidal ideation with no plan, no homicidal ideation Heme/Lymph: No Bruising, No Bleeding,No Lymphadenopathy Endocrine : No Polyuria, No Polydipsia, No Temperature Intolerance [facility] Past Medical History Medical History Opioid use disorder PTSD (post-traumatic stress disorder) Recurrent major depression Social History Social History Household Members: Unknown / Unable to assess Housing: Apartment Do you presently have visiting nurse or other home services: No Unable to assess alcohol history related to: Unknown Patient Tobacco Use Status: Never used Tobacco Second Hand Smoke Exposure: No Substance Use Type: Former Substance User Advance Directives: No Advance Directives Information Provided: No service: No Sexual orientation: Straight/Heterosexual Physical Exam Vital Signs: Vital Signs: Last Vital Signs Temp 99.0 F 08/30/22 21:07 Pulse 89 08/30/22 21:07 Resp 16 08/30/22 21:07 BP 127/95 H 08/30/22 21:07 Pulse Ox 96 08/30/22 21:07 O2 Del Method Room Air 08/30/22 21:07 BMI result Body Mass Index 26.6 Const: Other: Appearance: Alert. Oriented X3. Very anxious Eyes: Pupils equal, round and reactive to light. ENT: Pharynx normal. Neck: Normal inspection. Neck supple. No lymph nodes noted. No crepitus CVS: Normal heart rate and rhythm. Pulses normal. Normal S1 and S2 Respiratory: No respiratory distress. Breath sounds normal. No Wheezing. No rales Abdomen: Soft and nontender. No rigidity. No distention. Skin: Skin warm and dry. Normal skin color. Normal skin turgor. Extremities: No lower extremity edema. No Lacerations. No Rash Neuro: Oriented X 3. No motor deficit. No sensory deficit. Moving all extremities. No slurred speech. CN 2 through 12 grossly intact Psych: cooperative, very anxious, pacing Medical Decision Making Medical Decision Making MDM Narrative: -patient significantly anxious, given 2 mg of p.o. Ativan. Patient was discharged 8 days ago for similar complaints. Readmission has been considered -interpretation of Hematology/chemistry, no acute abnormalities -urinalysis, U tox pending -I reviewed patient's inpatient records. Patient was discharged 8 days ago, patient was admitted for opiate use disorder, recurrent major depression and PTSD Differential Diagnosis Differential Diagnoses: The differential diagnosis associated with the presentation includes (Anxiety, depression, substance abuse) Admission/Observation Consideration of admission/observation: Escalation of care including admission/observation considered Lab Data [facility] Lab Attestation statement: I reviewed the patient's lab results. 08/30/22 21:05 08/30/22 21:05 Labs: Lab Results 08/30/22 08/30/22 08/30/22 Range/Units 21:05 21:05 21:05 WBC 8.4 (4.8-10.8) X10*3/uL RBC 5.09 (4.20-5.50) X10*6/uL Hgb 14.5 (12.0-16.0) g/dl Hct 43.0 (37.0-47.0) % MCV 84.5 (80.0-98.0) fL MCH 28.5 (27.0-33.0) pg MCHC 33.7 (31.0-35.0) g/dl RDW 12.5 (11.0-16.0) % Plt Count 307 (160-400) X10*3/uL MPV 8.8 L (9.4-12.3) fL Immature Gran % (Auto) 0.2 (0.0-0.4) % Neut % (Auto) 58.8 (45-73) % Lymph % (Auto) 34.5 (20-40) % Anderson % (Auto) 5.2 (2-11) % Eos % (Auto) 0.8 (0-4) % Baso % (Auto) 0.5 (0-2) % Lymph # (Auto) 2.9 (1.2-4.9) X10*3/uL Anderson # (Auto) 0.4 (0.1-1.2) X10*3/uL Eos # (Auto) 0.1 (0.0-0.4) X10*3/uL Baso # (Auto) 0.0 (0.0-0.2) X10*3/uL Abs Immat Gran (auto) 0.02 (0.00-0.03) X10*3/uL Absolute Neuts (auto) 4.9 (2.0-8.3) x10*3/uL Absolute Nucleated RBC 0.000 (0.0-0.012) X10*3/uL Nucleated RBC % (auto) 0.0 (0.0-0.2) /100WBC Sodium 135 (135-145) mmol/L Potassium 4.6 (3.3-5.1) mmol/L Chloride 102 (96-108) mmol/L Carbon Dioxide 24 (22-29) mmol/L Anion Gap 14 (12-20) BUN 17 H (9-16) mg/dL Creatinine 1.13 (0.5-1.4) mg/dL Estim Creat Clear Calc 66.0 Estimated GFR 53 Random Glucose 117 H (60-115) mg/dL Calcium 9.9 (8.4-10.2) mg/dL Total Bilirubin 0.4 (0.0-1.0) mg/dL AST 55 H (5-31) U/L ALT 85 H (0-31) U/L Alkaline Phosphatase 69 (39-117) U/L Total Protein 8.5 H (6.5-8.0) g/dL Albumin 4.8 (3.5-5.0) g/dL Urine Color Urine Appearance Urine pH (5.0-9.0) Ur Specific [place] (1.005-1.025) Urine Protein (Neg-Trace) mg/dL Urine Glucose (UA) (Negative) mg/dL Urine Ketones (Negative) mg/dL Urine Blood (Negative) Urine Nitrite (Negative) Ur Leukocyte Esterase (Negative) Salicylates < 5.0 L (15-30) mg/dL Acetaminophen < 17 (<30) mcg/mL Ethyl Alcohol < 10 mg/dL 08/30/22 Range/Units 21:59 WBC (4.8-10.8) X10*3/uL RBC (4.20-5.50) X10*6/uL Hgb (12.0-16.0) g/dl Hct (37.0-47.0) % MCV (80.0-98.0) fL MCH (27.0-33.0) pg MCHC (31.0-35.0) g/dl RDW (11.0-16.0) % Plt Count (160-400) X10*3/uL MPV (9.4-12.3) fL Immature Gran % (Auto) (0.0-0.4) % Neut % (Auto) (45-73) % Lymph % (Auto) (20-40) % [place] % (Auto) (2-11) % Eos % (Auto) (0-4) % Baso % (Auto) (0-2) % Lymph # (Auto) (1.2-4.9) X10*3/uL [place] # (Auto) (0.1-1.2) X10*3/uL Eos # (Auto) (0.0-0.4) X10*3/uL Baso # (Auto) (0.0-0.2) X10*3/uL Abs Immat Gran (auto) (0.00-0.03) X10*3/uL Absolute Neuts (auto) (2.0-8.3) x10*3/uL Absolute Nucleated RBC (0.0-0.012) X10*3/uL Nucleated RBC % (auto) (0.0-0.2) /100WBC Sodium (135-145) mmol/L Potassium (3.3-5.1) mmol/L Chloride (96-108) mmol/L Carbon Dioxide (22-29) mmol/L Anion Gap (12-20) BUN (9-16) mg/dL Creatinine (0.5-1.4) mg/dL Estim Creat Clear Calc Estimated GFR Random Glucose (60-115) mg/dL Calcium (8.4-10.2) mg/dL Total Bilirubin (0.0-1.0) mg/dL AST (5-31) U/L ALT (0-31) U/L Alkaline Phosphatase (39-117) U/L Total Protein (6.5-8.0) g/dL Albumin (3.5-5.0) g/dL Urine Color Yellow Urine Appearance Clear Urine pH 6.0 (5.0-9.0) Ur Specific [place] 1.025 (1.005-1.025) Urine Protein Negative (Neg-Trace) mg/dL Urine Glucose (UA) Negative (Negative) mg/dL Urine Ketones Trace (Negative) mg/dL Urine Blood Negative (Negative) Urine Nitrite Negative (Negative) Ur Leukocyte Esterase Moderate (2+) H (Negative) Salicylates (15-30) mg/dL Acetaminophen (<30) mcg/mL Ethyl Alcohol mg/dL Discharge Plan Discharge Clinical Impression: PTSD (post-traumatic stress disorder), Depression Patient Disposition: Still a Patient Prescriptions: No Action buprenorphine-naloxone [Suboxone] 8-2 mg Film 1 film BUCCAL DAILY buprenorphine-naloxone [Suboxone] 4-1 mg film 1 film sublingual BEDTIME paroxetine HCl 40 mg Tablet 40 mg PO DAILY Qty: 30 1RF topiramate 25 mg Tablet 50 mg PO BID Qty: 120 1RF ziprasidone HCl 20 mg Capsule 20 mg PO BID PRN (Reason: anxiety/psychosis) Qty: 60 1RF docusate sodium 100 mg Capsule 100 mg PO BID Qty: 60 1RF gabapentin 800 mg tablet 800 mg PO TID Qty: 21 8RF clonazepam [Klonopin] 1 mg tablet 1 mg PO BID Qty: 14 0RF Interventions: [place]-Suicide Risk Severity Scale Last Done: 08/30/22 21:06
[2022-08-30 22:20] LABS: Appearance Urine Clear; Color Urine Yellow; Glucose Urine UA Negative (Negative); Leukocyte Esterase Urine Moderate (2+) (Negative); Nitrite Urine Negative (Negative); Specific Gravity - Urine 1.025 (1.005-1.025); UMIC TRIGGER UACC YES; Urine Blood Negative (Negative); Urine Ketones Trace mg/dL (Negative); Urine Protein Negative (Neg-Trace)
[2022-08-30 22:21] LABS: UPreg QC Valid YES; Urine Pregnancy NEGATIVE (NEGATIVE)
[2022-08-30 22:25] LABS: Bacteria Urine Trace (None Seen); Hyaline Casts Urine 0-2 /LPF (0-2); RBC Urine 0-2 /HPF (0-2); UACC Culture Trigger YES; WBC Urine 21-50 /HPF (0-5)
[2022-08-30 22:32] LABS: Amphetamine Screen Urine Not Detected (Not Detect); Barbiturates, Urine Not Detected (Not Detect); Benzodiazepines Screen Urine Not Detected (Not Detect); Cannabinoid Screen Urine Not Detected (Not Detect); Cocaine Screen Urine Not Detected (Not Detect); Fentanyl, urine Not Detected (Not Detect); Opiate Screen Urine Not Detected (Not Detect); Phencyclidine Screen Urine Not Detected (Not Detect)
[2022-08-30] MEDS: LORazepam 1 MG TABLET 2 MG PO (22:44)
[2022-08-31] MEDS: Topiramate 100 MG TABLET PO (04:00)
[2022-08-31 06:29] VITALS: BP 98/74; PULSE 75; RESP 16; TEMP 36.4; O2SAT 100
--- NOTE | 2022-08-31 07:14 | PC.NURSE ---
Patient slept through the night, no distress observed/reported, pending care team evaluation, med rec completed/pending evaluation, behavior non concerning, VSS, Topamax 100 mg administered per request, will continue to monitor.
[2022-08-31] MEDS: Docusate Sodium 100 MG CAPSULE PO (08:16)
[2022-08-31] MEDS: Buprenorphine/Naloxone 8/2 mg FILM 1 FILM SUBLINGUAL (08:16)
[2022-08-31] MEDS: Gabapentin 400 MG CAPSULE 800 MG PO (08:16)
[2022-08-31] MEDS: Topiramate 25 MG TABLET 50 MG PO (08:16)
[2022-08-31] MEDS: clonazePAM 1 MG TABLET PO (08:16)
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
[2022-08-31] MEDS: Ziprasidone 20 MG CAPSULE PO (09:39)
== END 2022-08-31 16:22 | disposition home or self-care (01) ==
PROVIDERS: Emergency Provider Emergency Medicine
DX: F33.1 Major depressive disorder, recurrent, moderate (principal); F43.10 Post-traumatic stress disorder, unspecified; F41.1 Generalized anxiety disorder; F43.0 Acute stress reaction; R45.851 Suicidal ideations; Z79.899 Other long term (current) drug therapy
CPT/HCPCS: 36415; 80053; 80143; 80179; 80307; 81001; 81025; 85025; 87086; 99284; S9485